=== PATIENT | male | born 1980 | race Caucasian/White ===

== ENCOUNTER → 2016-07-13 10:01 | Outpatient (CLI) | payer MEDICAID ==
[2016-02-04 16:14] VITALS: BMI 24.4
[~2016-07-13 10:01] MED LIST: HYDROCODON-ACE1 EAC7 PO; KLONOPIN1 MG PO; METOPROLOL TART50 MG PO; NICODERM C1 PATCH .2 TRANSDERM; PROTONIX40 MG PO; XARELTO15 MG PO
[2016-07-13 12:03] LABS: ALBUMIN 3.7 g/dL (3.4-5.0); BILIRUBIN - DIRECT 0.14 mg/dL (0.00-0.30); BILIRUBIN - INDIRECT 0.36 mg/dL (0.00-1.00); BILIRUBIN - TOTAL 0.5 mg/dL (0.2-1.3); PROTEIN - SERUM 6.7 g/dL (6.4-8.2); THYROID STIMULATING HORMONE 1.9 uIU/mL (0.36-3.74)
== END | disposition home or self-care (01) ==
LOC: D.LAB 07-11 10:00 → D.RT 07-11 10:00
PROVIDERS: Internal Medicine Pulmonary Disease
DX: I27.2 Other secondary pulmonary hypertension (principal)

== ENCOUNTER 2016-09-17 18:45 | Inpatient (IN) | payer MEDICAID ==
[~2016-09-17] VITALS: Ht 182.9 cm; Wt 79.7 kg
--- NOTE | ~2016-09-17 | HEMODYNAMI ---
PATIENT:TOBY MELENDEZ MEDICAL RECORD: [id number] : 84 [facility] [id number] ADMISSION DATE: 09/17/16 Generatedon:09/20/201616:28 Patient name: TOBY MELENDEZ Patient #: [id number] SSN: : 1980 Date of study: 09/20/2016 Page: Of Hemodynamic Procedure Report Patient Data Patient Demographics Procedure consent was obtained First Name: TOBY Gender: Male Last Name: NORA : 1980 [facility] Initial: KEYSHAWN Age: 36 year(s) Patient #: [id number] Race: Unknown Additional ID: [id number] Contact details Address: [address] [place] [address] State: [place] City: [place] Zip code: [address] Past Medical History Allergies: No known allergies Admission Admission Data Admission Date: 09/17/2016 Admission Time: 22:12 Room #: 2124 Procedure Procedure Types Cath Procedure Diagnostic Procedure Right Heart Right Heart Cath Right Heart Pharmacology Study Procedure Description Procedure Date Procedure Date: 09/20/2016 Procedure Start Time: 15:45 Procedure End Time: 16:27 Procedure Staff Name Function Karson Lyons MD Performing Physician Nahum Leal RT Scrub Amaris Chiu RN Nurse Kimberly Josue RT Monitor Morris Rebollar RT Foundation Relations Director Procedure Data Cath Procedure Fluoroscopy Diagnostic fluoroscopy Total fluoroscopy Time: time: 17.9 min 17.9 min Diagnostic fluoroscopy Total fluoroscopy dose: dose: 293.31 mGy 293.31 mGy Entry Location Entry Primary Successful Side Size Upsize Upsize Entry Closure Gaytan ccessful Closure Location (Fr) 1 (Fr) 2 (Fr) Remarks Device Remarks Femoral Right 7 Fr Manual vein Short Compression Estimated blood loss: 5 ml Diagnostic catheters Device Type Used For End Catheter Placement PostRank 7Fr Right heart cath [place] Thermodilution esmer Diagnostic Infinity 5Fr Right heart cath MPA-2 catheter Diagnostic Infinity 5Fr Right heart cath AR MOD Catheter Procedure Complications No complications Procedure Medications Medication Administration Route Dosage Oxygen NC 2 l/min Lidocaine 2% added to field 20 Heparin Flush Bag added to field 2 bags (1000units/500ml NS) 0.9% NaCl I.V. 100 ml/hr Versed I.V. 2 mg Fentanyl I.V. 50 mcg Versed I.V. 1 mg Fentanyl I.V. 50 mcg Versed I.V. 1 mg Fentanyl I.V. 50 mcg Versed I.V. 1 mg Fentanyl I.V. 50 mcg Adenosine IV 3mg/ml I.V. 50 mcg/kg/min Adenosine IV 3mg/ml I.V. 100 mcg/kg/min Adenosine IV 3mg/ml I.V. 200 mcg/kg/min Adenosine IV 3mg/ml I.V. 200 Versed I.V. 1 mg Hemodynamics Rest Heart Rate: 83 (bpm) Pressure Samples Time Site Value (mmHg) Purpose Heart Use Rate(bpm) 16:10 RV 101/-1,18 Snapshot 81 16:15 RV 105/-2,18 Snapshot 80 16:17 RV 94/-6,11 Snapshot 75 16:18 RV 79/-6,22 Snapshot 96 Snapshots Pre Cath Intra NCS Post Cath Vital Signs Time Heart Resp SPO2 NIBP (mmHg) Rhythm Pain Sedation Rate (ipm) (%) Status Level (bpm) 15:37:19 81 16 100 126/89(112) NSR 0 (11) 10(A) , No pain 15:41:36 92 15 100 131/85(112) NSR 0 (11) 10(A) , No pain 15:45:55 84 17 100 131/89(108) NSR 0 (11) 10(A) , No pain 15:50:13 72 15 99 134/90(107) NSR 0 (11) 10(A) , No pain 15:54:29 72 16 97 132/105(123) NSR 0 (11) 10(A) , No pain 15:58:47 77 17 98 132/87(109) NSR 0 (11) 10(A) , No pain 16:03:05 72 15 98 130/80(107) NSR 0 (11) 10(A) , No pain 16:07:21 83 16 94 114/87(99) NSR 0 (11) 10(A) , No pain 16:11:31 74 20 100 118/91(111) NSR 0 (11) 10(A) , No pain 16:15:47 72 17 100 130/83(99) NSR 0 (11) 10(A) , No pain 16:20:09 97 19 100 114/68(93) NSR 0 (11) 10(A) , No pain 16:24:23 78 16 100 115/82(106) NSR 0 (11) 10(A) , No pain Medications Time Medication Route Dose Verified Delivered Reason Notes Effectiveness by by 15:37:41 Oxygen NC 2 l/min Karson Buffie 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 anesthetic field MD DUMONT 15:47:54 Heparin Flush added 2 bags Karson Karson used for Bag to [facility] procedure (1000units/500ml field MD DUMONT NS) 15:48:06 0.9% NaCl I.V. 100 ml/hr Karson Buffie Per [place] Chiu RN physician 15:48:27 Versed I.V. 2 mg Karson Buffie for [facility] RN sedation 15:48:32 Fentanyl I.V. 50 mcg [facility] 15:53:34 Versed I.V. 1 mg [facility] 15:53:39 Fentanyl I.V. 50 mcg Karson Buffie for [place] Chiu RN sedation 16:00:57 Versed I.V. 1 mg [facility] sed[facility] 16:01:01 Fentanyl I.V. 50 mcg [facility] sedation 16:05:12 Versed I.V. 1 mg [facility] sed[facility] 16:11:13 Versed I.V. 1 mg [facility] 16:11:17 Fentanyl I.V. 50 mcg [facility]arson [facility] sed[facility] 16:13:11 Adenosine IV I.V. 50 Karson Buffie Per 3mg/ml mcg/kg/min [place] Apple RN physician 16:15:23 Adenosine IV I.V. 100 Karson Buffie Per 3mg/ml mcg/kg/min [facility] mckenzie MD 16:17:35 Adenosine IV I.V. 200 Karson Mavisie Per 3mg/ml mcg/kg/min [facility] mckenzie MD 16:19:28 Adenosine IV I.V. 200 Karson Buffie Per 3mg/ml mcg/kg/min- [facility] Chiu RN physician discontined Procedure Log Time Note 14:53:44 ACC Patient presents with Stable Angina CCS Anginal Class 2--Slight limitation of ordinary activity. 14:53:46 Diagnostic Cath status Elective 14:53:48 Nahum Elvis RT(R) sent for patient. Start room use. 14:53:49 Time tracking: Regular hours 14:53:53 Plan of Care:Hemodynamics will remain stable., Cardiac rhythm will remain stable., Comfort level will be maintained., Respiratory function will remain adequate., Patient/ family verbilizes understanding of procedure., Procedure tolerated without complication., Recovers from procedure without complications.. 15:29:29 Patient received from PCU to CCL 3 Alert and oriented. Tansferred to table in Supine position. 15:29:30 Warm blankets applied, and brandi hugger turned on for patient comfort. 15:29:31 Correct patient and procedure confirmed by team. 15:29:32 Signed procedure consent form obtained from patient. 15:29:33 ECG and BP/O2 sat monitors applied to patient. 15:29:34 Full Disclosure recording started 15:30:17 H&P Date Dictated: 09/19/2016 Within 30 days and on chart.. 15:30:19 Pre-procedure instructions explained to patient. 15:30:20 Pre-op teaching completed and patient verbalized understanding. 15:30:21 Family in patients room. 15:30:33 Patient NPO since Midnight. 15:30:42 Patient allergic to No known allergies 15:30:45 Is the patient allergic to Iodine/contrast media? No. 15:32:21 Xarelto last dose 09/17/16 15:32:26 Patient diabetic? No. 15:32:59 Previous problem with sedation/anesthesia? No ? 15:33:22 Snore? Yes 15:33:31 Rhythm: sinus rhythm 15:33:42 Sleep apnea? No 15:33:43 Deviated septum? No 15:33:44 Opens mouth fully? Yes 15:33:45 Sticks out tongue? Yes 15:33:46 Airway obstruction? No ? 15:33:48 Dentures? No ? 15:33:51 Pre procedure: right dorsailis pedis pulse 2+ Normal; easily identifiable; not easily obliterated 15:33:54 Patient pain scale 0/10 ?. 15:34:22 IV patent on arrival in right hand with 0.9% NaCl at [facility]. 15:34:29 Lab results completed and on chart. 15:34:31 Right groin area was prepped with chlora-prep and draped in sterile fashion 15:34:32 Alarms reviewed by R. N. 15:34:32 Sharps counted by scrub and verified by R.N. 15:34:39 Use device set Acist 15:34:40 Acist Syringe opened to sterile field. 15:34:41 Acist Hand Control opened to sterile field. 15:34:42 Acist Manifold opened to sterile field. 15:35:12 Bag Decanter opened to sterile field. 15:35:14 Terumo 7Fr [place] Sheath opened to sterile field. 15:35:22 Medline Cath Pack opened to sterile field. 15:35:51 Vital chart was started 15:37:26 Baseline sample Acquired. 15:37:41 Oxygen 2 l/min NC was administered by Amaris Chiu RN; used for procedure; 15:40:03 Final Timeout: patient, procedure, and site verified with staff and physician. All members of the team are in agreement. 15:40:05 Right groin site verified by team. 15:40:11 Physical assessment completed. ASA score P 2 - A patient with mild systemic disease as per Karson Lyons MD. 15:40:14 Sedation plan: IV Moderate Sedation Versed, Fentanyl 15:43:33 Zero performed for pressure channel P1 15:45:13 Procedure started. 15:45:23 Local anesthetic to right femoral vein with Lidocaine 2% by Karson Lyons MD.INITIAL ACCESS ONLY 15:46:34 A 7 Fr Short sheath was inserted into the Right Femoral vein 15:46:52 A PostRank 7Fr [place] Thermodilution esmer was advanced over the wire and used for Right heart cath. 15:47:48 Lidocaine 2% 20ml vial added to field was administered by Karson Lyons MD; for local anesthetic; 15:47:54 Heparin Flush Bag (1000units/500ml NS) 2 bags added to field was administered by Karson Lyons MD; used for procedure; 15:48:06 0.9% NaCl 100 ml/hr I.V. was administered by Amaris Chiu RN; Per physician; 15:48:27 Versed 2 mg I.V. was administered by Amaris Chiu RN; for sedation; 15:48:32 Fentanyl 50 mcg I.V. was administered by Amaris Chiu RN; for sedation; 15:50:35 [facility] [place] 150cm J .025 wire opened to sterile field. 15:50:52 0.025 wire advanced. 15:53:34 Versed 1 mg I.V. was administered by Amaris Chiu RN; for sedation; 15:53:39 Fentanyl 50 mcg I.V. was administered by Amaris Chiu RN; for sedation; 16:00:01 [place] removed unable to cross valve. 16:00:07 A Diagnostic Infinity 5Fr MPA-2 catheter was advanced over the wire and used for Right heart cath. 16:00:15 [facility] [place] 260cm J .035 wire opened to sterile field. 16:00:57 Versed 1 mg I.V. was administered by Amaris Chiu RN; for sedation; 16:01:01 Fentanyl 50 mcg I.V. was administered by Amaris Chiu RN; for sedation; 16:03:16 MPA-2 removed, unable to cross valve. 16:03:28 A Diagnostic Infinity 5Fr AR MOD Catheter was advanced over the wire and used for Right heart cath. 16:05:12 Versed 1 mg I.V. was administered by Amaris Chiu RN; for sedation; 16:05:24 [facility] 260 .035 glide wire opened to sterile field. 16:10:36 Baseline RV Systolic Pressure 101. 16:11:13 Versed 1 mg I.V. was administered by Amaris Chiu RN; for sedation; 16:11:17 Fentanyl 50 mcg I.V. was administered by Amaris Chiu RN; for sedation; 16:11:47 Unable to advance catheter to PA. Pressures taken in RV. 16:13:11 Adenosine IV 3mg/ml 50 mcg/kg/min I.V. was administered by Buffie Chiu RN; Per physician; 16:15:02 Timer 1 started at 4:12 PM, stopped at 4:15 PM, duration 00:02:03 sec. 16:15:03 2 min post 50mcg adenosine RV systolic pressure 105. 16:15:23 Adenosine IV 3mg/ml 100 mcg/kg/min I.V. was administered by Amaris Chiu RN; Per physician; 16:17:14 Timer 1 started at 4:15 PM, stopped at 4:17 PM, duration 00:02:05 sec. 16:17:15 2 minutes post 100 mcg adenosine RV systolic pressure 94. 16:17:35 Adenosine IV 3mg/ml 200 mcg/kg/min I.V. was administered by Amaris Chiu RN; Per physician; 16:19:09 Timer 1 started at 4:17 PM, stopped at 4:19 PM, duration 00:01:48 sec. 16:19:28 Adenosine IV 3mg/ml 200 mcg/kg/min- discontined I.V. was administered by Amaris Chiu RN; Per physician; 16:19:42 2 minute post 200 mcg adenosine RV systolic Pressure 79. 16:20:13 Catheter removed. 16:20:22 Sheath removed intact; hemostasis achieved with Manual Compression to the Right Femoral vein. 16:20:24 Procedure ended.(Physican Out) 16:20:39 Fluoroscopy time 17.90 minutes. 16:20:46 Flurop Dose total: 293.31 16:20:46 Fluoroscopy dose: 293.31 mGy 16:20:51 Sharps counted by scrub and verified by R.N. 16:20:52 Insertion/operative site no bleeding no hematoma. 16:20:56 Post-op/insertion site Right Femoral vein dressed using a 4 x 4 and Tegaderm. 16:21:00 Post right femoral vein:stable, clean and dry 16:21:02 Post Procedure Pulses reassessed and unchanged 16:21:04 Post-procedure physical assessment completed. ASA score P 2 - A patient with mild systemic disease as per Karson Lyons MD. 16:21:06 Post procedure rhythm: unchanged. 16:21:09 Estimated blood loss: 5 ml 16:21:10 Post procedure instruction explained to patient.Patient verbalizes understanding. 16:21:10 Patient needs reinforcement of post procedure teaching. 16:21:18 Procedure type changed to Cath procedure, Diagnostic procedure, Right Heart, Right Heart Cath, Right Heart Pharmacology Study 16:21:24 Procedure Complication : No complications 16:21:26 See physician's report for complete and final results. 16:21:39 Tegaderm 4 x 4 opened to sterile field. 16:22:37 Procedure and supply charges have been captured, reviewed, submitted and are correct. 16:27:33 Vital chart was stopped 16:27:40 Report given to PCU. 16:27:44 Patient transfered to PCU with Bed. 16:27:53 Procedure ended. 16:27:53 Full Disclosure recording stopped 16:27:57 End room use (Document Last) Device Usage Item Name Manufacture Quantity Catalog Hospital Part Current Minima l Lot# / Number Charge Number Stock Stock Serial# Code Acist Syringe Acist 1 09095 603187 561776 256973 20 Medical Systems Inc Acist Hand Acist 1 14313 238236 253285 592853 5 Control Medical Systems AnyPerk Acist Manifold Acist 1 93996 468561 897070 319760 5 Medical Systems Inc Bag Decanter Microtek 1 2002S 052970 41223 097153 5 Medical Inc. Terumo 7Fr Terumo 1 [id number] 949630 942719 376741 5 [place] Sheath Medline Cath Cardinal 1 [id number] 189428 63283 706278 5 [facility] Cantu Cantu 1 [id number] 208569 64654 514982 3 Lifesciences Lifesciences 7Fr [place] Thermodilution esmer [facility] [place] [address] [facility] [place] 1 393064 671502 142294 821510 2 J .025 wire Diagnostic Cardinal 1 [id number] 706808 469307 100225 5 Infinity 5Fr Health MPA-[address] [place] [address] [facility] [place] 1 382432 049245 543628 901278 30 J .035 wire Diagnostic Cardinal 1 [id number] 431047 256767 609427 15 Infinity 5Fr Health AR MOD Catheter [facility] 1 [id number] 837480 440210 5 RO[place] 260 .035 glide wire Tegaderm 4 x 4 3M 1 1626W 551156 782059 783775 5 Signature Audit [place] Stage Time Signature Unsigned Intra-Procedure 09/20/2016 Kimberly 4:28:15 PM Counts RT(R) Signatures Monitor : Kimberly Signature : Counts RT Date : Time : [facility] [address] [facility] [place] [address]
[2016-09-17 19:18] LABS: BASOPHILS 0.2 % (0-2); EOSINOPHILS 1.5 % (0-7); HEMATOCRIT 45.7 % (42.0-54.0); HEMOGLOBIN 15.7 g/dL (13.5-17.5); IMMATURE GRANULOCYTES 0.2 % (0-5); LYMPHOCYTES 13.5 % (15-50); MCH 31.6 pg (26.0-34.0); MCHC 34.4 g/dL (31.0-37.0); MONOCYTES 8.8 % (2-11); NEUTROPHILS 75.8 % (40-80); PLATELET COUNT 181 10x3/uL (130-400); RBC 4.97 10x6/uL (4.20-6.10); RDW 12.5 % (11.5-14.5); WBC 9.5 10x3/uL (4.8-10.8)
[2016-09-17 19:35] LABS: ALBUMIN 3.9 g/dL (3.4-5.0); ALKALINE PHOSPHATASE 65 U/L (46-116); ALT (SGPT) 42 U/L (10-68); CALC OSMOLALITY 282 mosm/kg (275-300); CALCIUM 8.9 mg/dL (8.5-10.1); CARBON DIOXIDE 25.4 mmol/L (21.0-32.0); CHLORIDE - SERUM 105 mmol/L (98-107); GLUCOSE 125 mg/dL (74-106); POTASSIUM - SERUM 3.8 mmol/L (3.5-5.1); PROTEIN - SERUM 7.2 g/dL (6.4-8.2); SODIUM 141 mmol/L (136-145); UREA NITROGEN 16 mg/dL (7-18); eGFR NON AFRICAN AMERICAN > 90 mL/min (90-120)
[2016-09-17 19:44] LABS: CHOL - HDL RATIO 2.9 ratio (2.3-4.9); CHOLESTEROL, TOTAL 132 mg/dL (0-200); CREATINE KINASE 53 UL (21-232); HDL CHOLESTEROL 45 mg/dL (32-96); LDL CHOLESTEROL 79 mg/dL (0-100); LDL-HDL RATIO 1.8 ratio (1.5-3.5); TRIGLYCERIDE 42 mg/dL (30-200); TROPONIN-I < 0.017 ng/mL (0.000-0.060)
[2016-09-17 20:05] LABS: APTT 43.8 SECONDS (22.8-39.4); INR 1.53 (0.85-1.17); PROTIME 18.3 SECONDS (11.6-15.0)
[2016-09-17 20:36] LABS: CKMB 0.7 U/L (0.0-3.6)
[2016-09-17] MEDS ORDERED: XARELTO20 MG PO (23:14)
[2016-09-17 23:59] VITALS: BP 105/75; BMI 24.4
[2016-09-18 01:53] VITALS: BP 150/75
--- NOTE | 2016-09-18 04:59 | NUR ---
PT HAS RESTED SINCE ARRIVAL TO ROOM. ROUSES UP EASILY. VOICING NO NEEDS. SR PER TELEMETRY. MONITOR AND CPOC.
[2016-09-18 05:56] VITALS: BP 100/63
--- NOTE | 2016-09-18 07:00 | NUR ---
ASSESSMENT COMPLETED. DENIES ANY NEEDS. TELEMERTY SHOWS SR AT 75. RIGHT HAND IV WITH NS AT 75. UP AB ERIK. CALL LIGHT IN REACH WITH SR UP
--- NOTE | 2016-09-18 07:56 | NUR ---
RESTING QUIETLY RESP UNLABORED NAD NOTED
[2016-09-18 08:00] VITALS: BP 104/60
[2016-09-18 11:55] VITALS: BP 101/64
[2016-09-18 12:22] VITALS: Ht 182.9 cm; Wt 79.7 kg
[2016-09-18 13:51] LABS: CKMB 0.4 U/L (0.0-3.6); CREATINE KINASE 48 UL (21-232)
[2016-09-18 13:52] LABS: TROPONIN-I < 0.017 ng/mL (0.000-0.060)
[2016-09-18 15:36] VITALS: BP 109/71
--- NOTE | 2016-09-18 16:30 | NUR ---
LYING QUIETLY. C/O ANXIETY.KLOPIN GIVEN FOR RELIEF. WILL MONITOR
--- NOTE | 2016-09-18 19:04 | NUR ---
DENIES ANY NEEDS. CALL LIGHT IN REACH WITH SR UP. TELEMERTY SHOWS SR
[2016-09-18 19:37] LABS: CKMB 0.6 U/L (0.0-3.6); CREATINE KINASE 51 UL (21-232)
[2016-09-18 19:38] LABS: TROPONIN-I < 0.017 ng/mL (0.000-0.060)
[2016-09-18 20:01] VITALS: BP 109/68
[2016-09-19 00:17] VITALS: BP 122/73
[2016-09-19 01:39] LABS: CKMB 0.4 U/L (0.0-3.6); CREATINE KINASE 46 UL (21-232); TROPONIN-I < 0.017 ng/mL (0.000-0.060)
[2016-09-19 04:46] VITALS: BP 101/68
[2016-09-19 06:50] LABS: BASOPHILS 0.3 % (0-2); EOSINOPHILS 2.5 % (0-7); HEMATOCRIT 48.5 % (42.0-54.0); HEMOGLOBIN 16.6 g/dL (13.5-17.5); IMMATURE GRANULOCYTES 0.1 % (0-5); LYMPHOCYTES 23.4 % (15-50); MCH 31.3 pg (26.0-34.0); MCHC 34.2 g/dL (31.0-37.0); MCV 91.5 fL (80.0-100.0); MEAN PLATELET VOLUME 12.2 fL (7.4-10.4); MONOCYTES 8.8 % (2-11); NEUTROPHILS 64.9 % (40-80); PLATELET COUNT 192 10x3/uL (130-400); RDW 12.5 % (11.5-14.5); WBC 8.8 10x3/uL (4.8-10.8)
[2016-09-19 07:12] LABS: ALBUMIN 3.8 g/dL (3.4-5.0); ALKALINE PHOSPHATASE 69 U/L (46-116); CALCIUM 8.9 mg/dL (8.5-10.1); CHLORIDE - SERUM 103 mmol/L (98-107); GLUCOSE 92 mg/dL (74-106); POTASSIUM - SERUM 3.9 mmol/L (3.5-5.1); PROTEIN - SERUM 7.2 g/dL (6.4-8.2); SODIUM 139 mmol/L (136-145); eGFR NON AFRICAN AMERICAN > 90 mL/min (90-120)
[2016-09-19 07:14] LABS: ALT (SGPT) 53 U/L (10-68); CALC OSMOLALITY 281 mosm/kg (275-300); UREA NITROGEN 23 mg/dL (7-18)
[2016-09-19 08:19] VITALS: BP 98/67
[2016-09-19 12:05] VITALS: BP 100/64
[2016-09-19 15:13] VITALS: BP 123/83
--- NOTE | 2016-09-19 18:36 | NUR ---
ALERT AND ORIENTED X4. RESTING IN BED. AGREES TO GO TO RAILWAY YARD ASSISTANT. NO ORDERS IN AT THIS TIME. SINUS RHYTHM 69bpm ON TELEMETRY. DENIES ANY NEEDS. CONTINUE PLAN OF CARE AND SAFETY PRECAUTIONS.
--- NOTE | 2016-09-19 19:15 | NUR ---
ASSESSMENT PER FLOWSHEET. VOICES NO CO AT TIME.
[2016-09-19 20:00] VITALS: BP 109/73
--- NOTE | 2016-09-19 20:30 | NUR ---
CONSENT SIGNED FOR HEART CATH.
--- NOTE | 2016-09-20 | NUR ---
SLEEPING NO DISTRESS NOTED. SR UP X 2.
--- NOTE | 2016-09-20 03:31 | NUR ---
SLEEPING NO DISTRESS NOTED. SR UP X 2. CALL LIGHT WITHIN REACH.
[2016-09-20 04:20] VITALS: BP 98/63
[2016-09-20 06:03] LABS: BASOPHILS 0.1 % (0-2); EOSINOPHILS 2.4 % (0-7); HEMATOCRIT 46.5 % (42.0-54.0); HEMOGLOBIN 15.7 g/dL (13.5-17.5); IMMATURE GRANULOCYTES 0.1 % (0-5); LYMPHOCYTES 25.6 % (15-50); MCH 30.8 pg (26.0-34.0); MCHC 33.8 g/dL (31.0-37.0); MCV 91.4 fL (80.0-100.0); MEAN PLATELET VOLUME 12.2 fL (7.4-10.4); MONOCYTES 8.1 % (2-11); NEUTROPHILS 63.7 % (40-80); PLATELET COUNT 179 10x3/uL (130-400); RBC 5.09 10x6/uL (4.20-6.10); RDW 12.3 % (11.5-14.5); WBC 7.9 10x3/uL (4.8-10.8)
[2016-09-20 06:30] LABS: ALBUMIN 3.5 g/dL (3.4-5.0); ALKALINE PHOSPHATASE 69 U/L (46-116); ALT (SGPT) 53 U/L (10-68); BILIRUBIN - TOTAL 0.79 mg/dL (0.2-1.3); CALC OSMOLALITY 287 mosm/kg (275-300); CALCIUM 8.3 mg/dL (8.5-10.1); CARBON DIOXIDE 24.6 mmol/L (21.0-32.0); CHLORIDE - SERUM 108 mmol/L (98-107); CREATININE - SERUM 0.9 mg/dL (0.6-1.3); GLUCOSE 95 mg/dL (74-106); POTASSIUM - SERUM 4.3 mmol/L (3.5-5.1); PROTEIN - SERUM 6.5 g/dL (6.4-8.2); SODIUM 142 mmol/L (136-145); UREA NITROGEN 26 mg/dL (7-18); eGFR NON AFRICAN AMERICAN > 90 mL/min (90-120)
--- NOTE | 2016-09-20 07:45 | NUR ---
ASSESSMENT DONE. DENIES NEEDS.
[2016-09-20 08:17] VITALS: BP 99/69
--- NOTE | 2016-09-20 08:41 | NUR ---
UP ADLIB IN ROOM. ISABELLA NEEDS.
--- NOTE | 2016-09-20 09:56 | CN ---
PATIENT NAME:GUANAKO MELENDEZ MEDICAL RECORD: [id number] : 84 LOCATION:D. D.2124 ADMIT DATE: 09/17/16 ACCOUNT: [id number] CONSULTING PHYSICIAN: MERLIN FLOWERS M.D. REFERRING PHYSICIAN: CHARLI DE LA TORRE MD DATE OF CONSULTATION: 09/18/2016 REFERRING PHYSICIAN: Dr. Charli De La Torre REASON FOR CONSULTATION: Diastolic dysfunction and valvular heart disease and pulmonary hypertension. HISTORY OF PRESENT ILLNESS: Guanako Giron is a 36-year-old male followed by Dr. Karson Lyons in cardiovascular clinic with known transient paroxysmal atrial fibrillation, now maintaining sinus rhythm, pulmonary hypertension with pulmonary artery pressure of 86 mmHg per recent echocardiogram with LV function of 40% and moderate to severe TR. He presented through the Emergency Department with chest pain and acute shortness of breath. He was admitted for above and we have been asked to make cardiovascular recommendations. It was recently discussed at patient's last office visit the need for a right heart catheterization. At that time, the patient declined. He was seen by Dr. Lyons on 07/20/2016. He does have a history of pulmonary emboli and is on Xarelto therapy and is oxygen dependent. REVIEW OF SYSTEMS: As per HPI. PAST MEDICAL HISTORY: Pulmonary hypertension, PE, anxiety, right-sided heart failure. ALLERGIES: He has no allergies. MEDICATIONS: 1. Xarelto 20 mg daily. 2. Klonopin 1 mg b.i.d. PHYSICAL EXAMINATION: VITAL SIGNS: Normal. GENERAL SURVEY: Reveals a well-developed, well-nourished male who is in no distress at the time of the exam. HEENT: Head is normocephalic. Pupils are equal and reactive to light and accommodation. Extraocular muscles are intact. Mucous membranes are pink and moist. NECK: Supple. Trachea is midline. There is no JVD or carotid bruits. CARDIOVASCULAR: Reveals a regular rate and rhythm without murmur, gallop or rub. LUNGS: Clear and equal bilaterally. ABDOMEN: Soft, nontender. Bowel sounds are positive. EXTREMITIES: No clubbing, cyanosis or edema. NEUROLOGIC: Cranial nerves II-XII are grossly intact. ASSESSMENT AND PLAN: 1. Severe pulmonary hypertension with PA pressure of 86 mmHg per recent 2D echocardiogram. Agree with need for right heart catheterization. The patient is hesitant to do this at this point. 2. Fckxj-gy-[id number] diastolic dysfunction. The patient is euvolemic by exam. CONSULT REPORT [id number] GUANAKO MELENDEZ He is responding to the IV Lasix. 3. Severe valvular heart disease with severe tricuspid regurgitation. 4. History of pulmonary emboli, on Xarelto therapy. 5. Anxiety disorder. 6. Cardiomyopathy per recent echocardiogram with LV of 40%. RECOMMENDATIONS: Agree further need for a right and left heart cath. The patient has declined this at this time. We will reassess in the a.m. TRANSINT:[id number] Voice Confirmation ID: [id number] DOCUMENT ID: [id number] Dictated By: ABI PEARSON I have interviewed/examined the above patient and agree with these documented findings. MERLIN FLOWERS M.D. at 0956 CC: [id number] DICTATION DATE: 09/18/16 0848 RAPID OUTSOLE STITCHER: 09/18/16 1023 ADM IN [facility] [address] [place] [address]
[2016-09-20 11:22] VITALS: BP 125/78
--- NOTE | 2016-09-20 16:30 | NUR ---
RETURN FROM COTTON AGENT PER BED. RHC DONE. RT MARZENA RHODES C/D/I. FAMILY AT SIDE.
--- NOTE | 2016-09-20 18:34 | NUR ---
DC GIVEN TO PT
--- NOTE | 2016-09-20 19:25 | NUR ---
PTS TRANSPORTATION HERE. BELONGINGS COLLECTED. TRANSPORTED DOWN IN W/C TO LOBBY WHERE RIDE IS. NO FURTHER NEEDS.
--- NOTE | 2016-09-23 10:26 | OP ---
PATIENT NAME: TOBY MELENDEZ MEDICAL RECORD: [id number] :84 LOCATION:D.M2 D.2124 ADMISSION DATE:09/17/16 SURGEON: ANNALISE SAMUEL MD DATE OF OPERATION: 09/20/2016 PROCEDURE: Right heart catheterization. IMPRESSION: Pulmonary hypertension. DESCRIPTION OF PROCEDURE: After right femoral vein was cannulated via Seldinger technique. We were unable to provide stability in the PA pressures using both diagnostic angiographic catheters and Steamburg-Omid catheter. Using RV systolic pressures as a surrogate for the PA pressures, IV adenosine was used in increasing increments up to 200 mcg/kg per minute. This showed excellent improvement, steady states at 200 mcg/kg per minute with RV systolic pressures decreasing from over 100 to ____. IMPRESSION: Greater than 10% improvement in RV systolic pressures with continuous IV adenosine. TRANSINT:[id number] Voice Confirmation ID: [id number] DOCUMENT ID: [id number] ANNAILSE SAMUEL MD at 1026 CC: [id number] DICTATION DATE: 09/20/16 1628 CNC MACHINIST: 09/21/16 0030 DIS IN 09/20/16 [facility] [address] [place] [id number]
== END 2016-09-20 19:26 | disposition home or self-care (01) | DRG 286 ==
LOC: D.ER 18:45 → D.M2 22:12
PROVIDERS: Emergency Medicine; Internal Medicine Interventional Cardiology; ADMIT Family Medicine
PROC: B2141ZZ Fluoroscopy of Right Heart using Low Osmolar Contrast (ICD-10-PCS; 2016-09-20)
PROC: 4A023N6 Measurement of Cardiac Sampling and Pressure, Right Heart, Percutaneous Approach (ICD-10-PCS; principal; 2016-09-20 15:00)
DX: I27.2 Other secondary pulmonary hypertension (principal); I50.33 Acute on chronic diastolic (congestive) heart failure; F17.203 Nicotine dependence unspecified, with withdrawal; I11.0 Hypertensive heart disease with heart failure; Z99.81 Dependence on supplemental oxygen; I07.1 Rheumatic tricuspid insufficiency; F41.9 Anxiety disorder, unspecified; N28.9 Disorder of kidney and ureter, unspecified; I48.0 Paroxysmal atrial fibrillation; F12.10 Cannabis abuse, uncomplicated; Z86.711 Personal history of pulmonary embolism

== ENCOUNTER 2016-10-26 19:15 | Emergency (ER) | payer MEDICAID ==
[2016-09-18 12:22] VITALS: BMI 24.4
[~2016-10-26 19:15] MED LIST changes: +XARELTO20 MG PO
[2016-10-26 20:39] LABS: BASOPHILS 0.1 % (0-2); EOSINOPHILS 0.8 % (0-7); HEMATOCRIT 42.3 % (42.0-54.0); HEMOGLOBIN 14.2 g/dL (13.5-17.5); IMMATURE GRANULOCYTES 0.2 % (0-5); LYMPHOCYTES 13.1 % (15-50); MCH 31.1 pg (26.0-34.0); MCHC 33.6 g/dL (31.0-37.0); MCV 92.8 fL (80.0-100.0); MEAN PLATELET VOLUME 11.4 fL (7.4-10.4); MONOCYTES 7.5 % (2-11); NEUTROPHILS 78.3 % (40-80); PLATELET COUNT 163 10x3/uL (130-400); RBC 4.56 10x6/uL (4.20-6.10); RDW 13.8 % (11.5-14.5)
[2016-10-26 20:52] LABS: ALBUMIN 3.4 g/dL (3.4-5.0); ALKALINE PHOSPHATASE 55 U/L (46-116); ALT (SGPT) 51 U/L (10-68); BILIRUBIN - TOTAL 0.69 mg/dL (0.2-1.3); CALC OSMOLALITY 277 mosm/kg (275-300); CALCIUM 8.5 mg/dL (8.5-10.1); CARBON DIOXIDE 26.1 mmol/L (21.0-32.0); CHLORIDE - SERUM 105 mmol/L (98-107); CREATININE - SERUM 1.1 mg/dL (0.6-1.3); GLUCOSE 91 mg/dL (74-106); POTASSIUM - SERUM 4.2 mmol/L (3.5-5.1); PROTEIN - SERUM 6.3 g/dL (6.4-8.2); SODIUM 138 mmol/L (136-145); UREA NITROGEN 19 mg/dL (7-18); eGFR NON AFRICAN AMERICAN 81 mL/min (90-120)
[2016-10-26 21:00] LABS: PRO BNP 2532 pg/mL (0-125)
[2016-10-26 21:03] LABS: APTT 51.1 SECONDS (22.8-39.4)
[2016-10-26 21:04] LABS: D-DIMER-QUANTITATIVE < 0.27 ug/mLFEU (0.20-0.54); INR 1.64 (0.85-1.17); PROTIME 19.4 SECONDS (11.6-15.0)
== END 2016-10-26 22:37 | disposition home or self-care (01) ==
LOC: D.ER 19:15
PROVIDERS: Physician Assistant Medical
DX: I50.9 Heart failure, unspecified (principal); R53.83 Other fatigue

== ENCOUNTER 2016-12-25 16:15 | Emergency (ER) | payer MEDICAID ==
[2016-09-18 12:22] VITALS: BMI 24.4
[2016-12-25 16:57] LABS: BASOPHILS 0.1 % (0-2); HEMATOCRIT 48.8 % (42.0-54.0); HEMOGLOBIN 16.7 g/dL (13.5-17.5); LYMPHOCYTES 17.2 % (15-50); MCH 31.5 pg (26.0-34.0); MCHC 34.2 g/dL (31.0-37.0); MCV 91.9 fL (80.0-100.0); MEAN PLATELET VOLUME 11.8 fL (7.4-10.4); MONOCYTES 8.6 % (2-11); NEUTROPHILS 73.1 % (40-80); PLATELET COUNT 186 10x3/uL (130-400); RBC 5.31 10x6/uL (4.20-6.10); RDW 12.9 % (11.5-14.5); WBC 8.1 10x3/uL (4.8-10.8)
[2016-12-25 17:15] LABS: ALBUMIN 4.4 g/dL (3.4-5.0); ALKALINE PHOSPHATASE 58 U/L (46-116); ALT (SGPT) 56 U/L (10-68); CALC OSMOLALITY 277 mosm/kg (275-300); CALCIUM 9.7 mg/dL (8.5-10.1); CARBON DIOXIDE 24.8 mmol/L (21.0-32.0); CHLORIDE - SERUM 105 mmol/L (98-107); GLUCOSE 101 mg/dL (74-106); POTASSIUM - SERUM 4.5 mmol/L (3.5-5.1); PROTEIN - SERUM 7.7 g/dL (6.4-8.2); SODIUM 140 mmol/L (136-145); UREA NITROGEN 10 mg/dL (7-18); eGFR NON AFRICAN AMERICAN > 90 mL/min (90-120)
[2016-12-25 17:26] LABS: CHOLESTEROL, TOTAL 151 mg/dL (0-200); CKMB 0.6 U/L (0.0-3.6); CREATINE KINASE 65 UL (21-232); HDL CHOLESTEROL 51 mg/dL (32-96); LDL CHOLESTEROL 90 mg/dL (0-100); LDL-HDL RATIO 1.8 ratio (1.5-3.5); TRIGLYCERIDE 52 mg/dL (30-200); TROPONIN-I < 0.017 ng/mL (0.000-0.060)
== END 2016-12-25 18:20 | disposition home or self-care (01) ==
LOC: D.ER 16:15
PROVIDERS: Emergency Medicine
DX: R00.2 Palpitations (principal); Z86.79 Personal history of other diseases of the circulatory system; I45.10 Unspecified right bundle-branch block

== ENCOUNTER 2017-03-18 20:38 | Emergency (ER) | payer MEDICAID ==
[2016-09-18 12:22] VITALS: BMI 24.4
[2017-03-18 21:20] LABS: BASOPHILS 0.2 % (0-2); EOSINOPHILS 1.5 % (0-7); HEMATOCRIT 47.2 % (42.0-54.0); HEMOGLOBIN 16.2 g/dL (13.5-17.5); IMMATURE GRANULOCYTES 0.1 % (0-5); LYMPHOCYTES 15.8 % (15-50); MCH 31.3 pg (26.0-34.0); MCHC 34.3 g/dL (31.0-37.0); MCV 91.1 fL (80.0-100.0); MEAN PLATELET VOLUME 11.4 fL (7.4-10.4); MONOCYTES 8.5 % (2-11); NEUTROPHILS 73.9 % (40-80); PLATELET COUNT 177 10x3/uL (130-400); RBC 5.18 10x6/uL (4.20-6.10); RDW 12.5 % (11.5-14.5); WBC 9.2 10x3/uL (4.8-10.8)
[2017-03-18 21:51] LABS: ALBUMIN 4.2 g/dL (3.4-5.0); ALKALINE PHOSPHATASE 61 U/L (46-116); ALT (SGPT) 52 U/L (10-68); CALC OSMOLALITY 277 mosm/kg (275-300); CALCIUM 9.1 mg/dL (8.5-10.1); CARBON DIOXIDE 28.9 mmol/L (21.0-32.0); CHLORIDE - SERUM 102 mmol/L (98-107); CREATININE - SERUM 1.2 mg/dL (0.6-1.3); GLUCOSE 98 mg/dL (74-106); PROTEIN - SERUM 7.4 g/dL (6.4-8.2); SODIUM 140 mmol/L (136-145); UREA NITROGEN 11 mg/dL (7-18); eGFR NON AFRICAN AMERICAN 74 mL/min (90-120)
[2017-03-18 22:05] LABS: CHOL - HDL RATIO 2.9 ratio (2.3-4.9); CHOLESTEROL, TOTAL 146 mg/dL (0-200); CREATINE KINASE 51 UL (21-232); HDL CHOLESTEROL 51 mg/dL (32-96); LDL CHOLESTEROL 80 mg/dL (0-100); LDL-HDL RATIO 1.6 ratio (1.5-3.5); TRIGLYCERIDE 79 mg/dL (30-200); TROPONIN-I < 0.017 ng/mL (0.000-0.060)
== END 2017-03-18 23:59 | disposition home or self-care (01) ==
LOC: D.ER 20:38
PROVIDERS: Family Medicine
DX: R07.89 Other chest pain (principal); I45.10 Unspecified right bundle-branch block

== ENCOUNTER 2017-05-10 18:22 | Emergency (ER) | payer MEDICAID ==
[2016-09-18 12:22] VITALS: BMI 24.4
[2017-05-10 18:53] LABS: APPEARANCE CLEAR (CLEAR); BACTERIA FEW /hpf (NONE SEEN); BILIRUBIN NEGATIVE (NEGATIVE); COLOR YELLOW (YELLOW); GLUCOSE NEGATIVE (NEGATIVE); KETONE NEGATIVE (NEGATIVE); NITRITE NEGATIVE (NEGATIVE); PROTEIN TRACE mg/dL (NEGATIVE); RED CELLS - URINE OCC /hpf (0-5); UROBILINOGEN NORMAL (NORMAL); WHITE CELLS - URINE 0-5 /hpf (0-5)
[2017-05-10 19:19] LABS: BASOPHILS 0.2 % (0-2); EOSINOPHILS 1.3 % (0-7); HEMATOCRIT 46.5 % (42.0-54.0); HEMOGLOBIN 15.9 g/dL (13.5-17.5); IMMATURE GRANULOCYTES 0.1 % (0-5); MCH 31.1 pg (26.0-34.0); MCHC 34.2 g/dL (31.0-37.0); MEAN PLATELET VOLUME 11.6 fL (7.4-10.4); MONOCYTES 6.8 % (2-11); NEUTROPHILS 74.6 % (40-80); PLATELET COUNT 170 10x3/uL (130-400); RBC 5.11 10x6/uL (4.20-6.10); RDW 12.7 % (11.5-14.5); WBC 10.1 10x3/uL (4.8-10.8)
[2017-05-10 19:22] LABS: INR 1.22 (0.85-1.17); PROTIME 14.9 SECONDS (11.6-15.0)
[2017-05-10 19:23] LABS: APTT 31.5 SECONDS (22.8-39.4)
[2017-05-10 19:24] LABS: ALBUMIN 4.1 g/dL (3.4-5.0); ALKALINE PHOSPHATASE 65 U/L (46-116); ALT (SGPT) 65 U/L (10-68); BILIRUBIN - TOTAL 0.98 mg/dL (0.2-1.3); CALC OSMOLALITY 277 mosm/kg (275-300); CALCIUM 8.8 mg/dL (8.5-10.1); CARBON DIOXIDE 26.8 mmol/L (21.0-32.0); CHLORIDE - SERUM 104 mmol/L (98-107); D-DIMER-QUANTITATIVE < 0.27 ug/mLFEU (0.20-0.54); GLUCOSE 91 mg/dL (74-106); PROTEIN - SERUM 7.7 g/dL (6.4-8.2); SODIUM 138 mmol/L (136-145); UREA NITROGEN 18 mg/dL (7-18); eGFR NON AFRICAN AMERICAN > 90 mL/min (90-120)
[2017-05-10 19:36] LABS: CKMB 0.8 U/L (0.0-3.6); CREATINE KINASE 34 UL (21-232); PRO BNP 2229 pg/mL (0-125)
[2017-05-10 19:38] LABS: TROPONIN-I < 0.017 ng/mL (0.000-0.060)
[2017-05-10 19:52] LABS: UDS - AMPHET NEGATIVE QUAL (NEGATIVE); UDS - BARB NEGATIVE QUAL (NEGATIVE); UDS - BENZO NEGATIVE QUAL (NEGATIVE); UDS - COCAINE NEGATIVE QUAL (NEGATIVE); UDS - OPIATE NEGATIVE QUAL (NEGATIVE); UDS - PCP NEGATIVE QUAL (NEGATIVE); UDS - THC NEGATIVE QUAL (NEGATIVE)
== END 2017-05-10 21:50 | disposition home or self-care (01) ==
LOC: D.ER 18:22
PROVIDERS: Family Medicine; Nurse Practitioner Family
DX: R00.2 Palpitations (principal); I50.9 Heart failure, unspecified; I10 Essential (primary) hypertension

== ENCOUNTER 2017-06-05 17:44 | Emergency (ER) | payer MEDICAID ==
[2016-09-18 12:22] VITALS: BMI 24.4
[2017-06-05 20:55] LABS: BASOPHILS 0.2 % (0-2); EOSINOPHILS 1.2 % (0-7); HEMATOCRIT 45.9 % (42.0-54.0); HEMOGLOBIN 15.7 g/dL (13.5-17.5); IMMATURE GRANULOCYTES 0.1 % (0-5); LYMPHOCYTES 12.1 % (15-50); MCH 31.5 pg (26.0-34.0); MCHC 34.2 g/dL (31.0-37.0); MEAN PLATELET VOLUME 11.4 fL (7.4-10.4); MONOCYTES 6.3 % (2-11); NEUTROPHILS 80.1 % (40-80); PLATELET COUNT 167 10x3/uL (130-400); RBC 4.99 10x6/uL (4.20-6.10); WBC 11.2 10x3/uL (4.8-10.8)
[2017-06-05 21:08] LABS: ALBUMIN 3.9 g/dL (3.4-5.0); ALKALINE PHOSPHATASE 63 U/L (46-116); ALT (SGPT) 60 U/L (10-68); BILIRUBIN - TOTAL 0.91 mg/dL (0.2-1.3); CALC OSMOLALITY 283 mosm/kg (275-300); CALCIUM 8.7 mg/dL (8.5-10.1); CARBON DIOXIDE 27.6 mmol/L (21.0-32.0); CHLORIDE - SERUM 104 mmol/L (98-107); CREATININE - SERUM 1.2 mg/dL (0.6-1.3); GLUCOSE 90 mg/dL (74-106); POTASSIUM - SERUM 3.7 mmol/L (3.5-5.1); PROTEIN - SERUM 7.3 g/dL (6.4-8.2); SODIUM 141 mmol/L (136-145); UREA NITROGEN 20 mg/dL (7-18); eGFR NON AFRICAN AMERICAN 74 mL/min (90-120)
[2017-06-05 21:16] LABS: PRO BNP 2406 pg/mL (0-125)
[2017-06-05 21:18] LABS: TROPONIN-I < 0.017 ng/mL (0.000-0.060)
== END 2017-06-05 21:26 | disposition home or self-care (01) ==
LOC: D.ER 17:44
PROVIDERS: Emergency Medicine
DX: R00.0 Tachycardia, unspecified (principal); I50.9 Heart failure, unspecified; I10 Essential (primary) hypertension; I45.10 Unspecified right bundle-branch block

== ENCOUNTER 2017-07-23 23:00 | Emergency (ER) | payer SELFPAY ==
[2016-09-18 12:22] VITALS: BMI 24.4
[2017-07-23 23:54] LABS: HEMATOCRIT 46.2 % (42.0-54.0); HEMOGLOBIN 15.8 g/dL (13.5-17.5); LYMPHOCYTES 19.7 % (15-50); MCH 30.6 pg (26.0-34.0); MCHC 34.2 g/dL (31.0-37.0); MCV 89.5 fL (80.0-100.0); MEAN PLATELET VOLUME 11.3 fL (7.4-10.4); NEUTROPHILS 72.6 % (40-80); PLATELET COUNT 176 10x3/uL (130-400); RBC 5.16 10x6/uL (4.20-6.10); RDW 13.2 % (11.5-14.5); WBC 7.6 10x3/uL (4.8-10.8)
[2017-07-24 00:14] LABS: ALBUMIN 4.1 g/dL (3.4-5.0); ALKALINE PHOSPHATASE 66 U/L (46-116); ALT (SGPT) 49 U/L (10-68); CALC OSMOLALITY 280 mosm/kg (275-300); CALCIUM 8.9 mg/dL (8.5-10.1); CARBON DIOXIDE 31.7 mmol/L (21.0-32.0); CHLORIDE - SERUM 101 mmol/L (98-107); CREATININE - SERUM 1.2 mg/dL (0.6-1.3); GLUCOSE 101 mg/dL (74-106); POTASSIUM - SERUM 3.5 mmol/L (3.5-5.1); PROTEIN - SERUM 7.8 g/dL (6.4-8.2); SODIUM 140 mmol/L (136-145); UREA NITROGEN 19 mg/dL (7-18); eGFR NON AFRICAN AMERICAN 73 mL/min (90-120)
[2017-07-24 00:20] LABS: CKMB 0.5 U/L (0.0-3.6); CREATINE KINASE 39 UL (21-232)
[2017-07-24 00:22] LABS: TROPONIN-I < 0.017 ng/mL (0.000-0.060)
== END 2017-07-24 00:57 | disposition home or self-care (01) ==
LOC: D.ER 23:00
PROVIDERS: Physician Assistant Medical
DX: I50.9 Heart failure, unspecified (principal); I27.20 Pulmonary hypertension, unspecified; I45.10 Unspecified right bundle-branch block; F17.200 Nicotine dependence, unspecified, uncomplicated

== ENCOUNTER 2017-10-21 21:57 | Emergency (ER) | payer MEDICAID ==
[~2017-10-21] VITALS: Ht 182.9 cm; Wt 81.6 kg
[2017-10-21 22:02] VITALS: Ht 182.9 cm; Wt 81.6 kg
[2017-10-21] MEDS ORDERED: ADCIRCA20 MG PO (22:04)
[2017-10-21] MEDS ORDERED: LASIX40 MG PO (22:06)
[2017-10-21] MEDS ORDERED: K-TAB10 MEQ PO (22:07)
[2017-10-21 22:43] LABS: BASOPHILS 0.2 % (0-2); EOSINOPHILS 1.6 % (0-7); HEMATOCRIT 43.8 % (42.0-54.0); HEMOGLOBIN 15.1 g/dL (13.5-17.5); IMMATURE GRANULOCYTES 0.1 % (0-5); LYMPHOCYTES 17.2 % (15-50); MCH 31.1 pg (26.0-34.0); MCHC 34.5 g/dL (31.0-37.0); MCV 90.1 fL (80.0-100.0); MEAN PLATELET VOLUME 11.7 fL (7.4-10.4); MONOCYTES 7.3 % (2-11); NEUTROPHILS 73.6 % (40-80); PLATELET COUNT 183 10x3/uL (130-400); RBC 4.86 10x6/uL (4.20-6.10); RDW 12.8 % (11.5-14.5); WBC 8.8 10x3/uL (4.8-10.8)
[2017-10-21 22:57] LABS: ALBUMIN 3.8 g/dL (3.4-5.0); ALKALINE PHOSPHATASE 72 U/L (46-116); ALT (SGPT) 43 U/L (10-68); BILIRUBIN - TOTAL 0.97 mg/dL (0.2-1.3); CALC OSMOLALITY 277 mosm/kg (275-300); CALCIUM 8.5 mg/dL (8.5-10.1); CARBON DIOXIDE 32.3 mmol/L (21.0-32.0); CHLORIDE - SERUM 102 mmol/L (98-107); CREATININE - SERUM 1.3 mg/dL (0.6-1.3); GLUCOSE 92 mg/dL (74-106); POTASSIUM - SERUM 3.5 mmol/L (3.5-5.1); PROTEIN - SERUM 7.5 g/dL (6.4-8.2); SODIUM 138 mmol/L (136-145); UREA NITROGEN 18 mg/dL (7-18); eGFR NON AFRICAN AMERICAN 67 mL/min (90-120)
[2017-10-21 23:14] LABS: CKMB 0.6 U/L (0.0-3.6); CREATINE KINASE 42 UL (21-232); PRO BNP 1442 pg/mL (0-125); TROPONIN-I < 0.017 ng/mL (0.000-0.060)
[2017-10-21 23:22] LABS: UDS - AMPHET NEGATIVE QUAL (NEGATIVE); UDS - BARB NEGATIVE QUAL (NEGATIVE); UDS - BENZO NEGATIVE QUAL (NEGATIVE); UDS - COCAINE NEGATIVE QUAL (NEGATIVE); UDS - OPIATE NEGATIVE QUAL (NEGATIVE); UDS - PCP NEGATIVE QUAL (NEGATIVE); UDS - THC NEGATIVE QUAL (NEGATIVE)
[2017-10-21 23:31] LABS: APPEARANCE CLEAR (CLEAR); BILIRUBIN NEGATIVE (NEGATIVE); COLOR YELLOW (YELLOW); GLUCOSE NEGATIVE (NEGATIVE); KETONE NEGATIVE (NEGATIVE); NITRITE NEGATIVE (NEGATIVE); PROTEIN NEGATIVE (NEGATIVE); SPECIFIC GRAVITY 1.015 (1.005-1.020); UROBILINOGEN NORMAL (NORMAL)
[2017-10-21 23:32] LABS: BACTERIA FEW /hpf (NONE SEEN); EPITHELIAL CELLS 0-5 /hpf (0-5); RED CELLS - URINE 0-5 /hpf (0-5); WHITE CELLS - URINE 0-5 /hpf (0-5)
[2017-10-21 23:34] LABS: INR 2.49 (0.85-1.17); PROTIME 26.3 SECONDS (11.6-15.0)
[2017-10-21 23:35] LABS: APTT 45.5 SECONDS (22.8-39.4)
[2017-10-22] MEDS ORDERED: KLOR-CON20 MEQ/PKT PO (00:28)
[2017-10-22 01:02] VITALS: BP 126/74
== END 2017-10-22 01:09 | disposition home or self-care (01) ==
LOC: D.ER 21:57
PROVIDERS: Family Medicine
DX: I27.20 Pulmonary hypertension, unspecified (principal); I50.9 Heart failure, unspecified; R00.2 Palpitations

== ENCOUNTER 2018-01-16 20:15 | Inpatient (IN) | payer MEDICAID ==
[~2018-01-16] VITALS: Ht 182.9 cm; Wt 81.7 kg
--- NOTE | ~2018-01-16 | MORECARE ---
CASE MANAGEMENT DISCHARGE SUMMARY PATIENT: TOBY MELENDEZ UNIT: [id number] ADM DATE: 01/17/18 AGE: 37 : [birth year] SEX: M ROOM/BED: D.2119 AUTHOR: ANTONIETTA BLOUNT PHYSICIAN: REFERRING PHYSICIAN: ADALBERTO PATEL MD DATE OF SERVICE: 01/17/18 Discharge Plan Patient Name: TOBY MELENDEZ Facility: [facility]:[place] : 1980 Planned Disposition: Left Against Medical Advice Anticipated Discharge Date: 01/17/18 Discharge Date: 01/17/2018 Expected LOS: 1 Initial Reviewer: [email or web address] Initial Review Date: 01/17/2018 Generated: 01/17/18 5:42 pm Patient Name: TOBY MELENDEZ Page 16321 at 1643 All edits/amendments must be made on the electronic document DICTATION DATE: 01/17/181641 DRAPERY MAKER: TEODORO 01/17/181641 RPT#: [id number] DC DATE:01/17/18 STATUS: DIS IN [facility] [address] [place] [address] END OF REPORT
--- NOTE | ~2018-01-16 | EC ---
PATIENT:TOBY MELENDEZ DATE OF SERVICE: 01/17/18 SEX: M MEDICAL RECORD: [id number] DATE OF : [birth year] LOCATION:D. D.211 AGE OF PATIENT: 37 ADMISSION DATE: 01/17/18 REFERRING PHYSICIAN: INTERPRETING PHYSICIAN: DAMION BLEDSOE MD ECHOCARDIOGRAM REPORT ECHO CHARGES 4 ECHO COMPLETE Date: 01/17/18 CLINICAL DIAGNOSIS: RIGHT SIDE HEART FAILURE, PULMONARY HTN ECHOCARDIOGRAPHIC MEASUREMENTS (adult normal given) AC root (d.<3.7cm) 3.7 cm LV Septum d (<1.2 cm> 1.4 cm Valve Excursion 2.2 cm LV Septum (systole) 1.5 cm Left Atria (s.<4.0cm> 4.0 cm LVPW d(<1.2cm) 1.3 cm RV (d.<2.3cm) 6.0 cm LVPW (sytole) 1.7 cm LV diastole(<5.6CM) 4.2 cm MV E-F(>70mm/sec) cm LV systole 2.3 cm LVOT Diameter 1.9 cm MV exc.(>10mm) 1.6 cm Est.ejection fraction (50-75%) % DOPPLER: LVIT cm/sec A 58.0 cm/sec E 80.0 cm/sec LA cm/sec RVSP 118 mmHg LVOT 137 cm/sec AOP1/2T m/s Asc. Ao 135 cm/sec RVOT 79 cm/sec RA cm/sec PA 152 cm/sec AV Gradient Peak 7.32 mmHg AV Mean 3.72 mmHg AV Area 3.1 cm MV Gradient Peak mmHg MV Mean mmHg MV Area cm COMMENTS: Tunnel Inspector: Sarah WOODWARD Medical Office Representative: 4 Dr. Bledsoe TAPE# PACS Pericardial Effusion N DATE OF SERVICE: PROCEDURE: Transthoracic echocardiogram. FINDINGS: 1. Left ventricle shows mild left ventricular hypertrophy. Ejection fraction is 60% to 65%. There is no regional wall motion abnormalities. 2. The left atrium is normal. 3. The aortic valve is normal. 4. The mitral valve is normal. ECHOCARDIOGRAM REPORT [id number] TOBY MELENDEZ 5. The right ventricle is severely dilated and there is right ventricular hypertrophy. There is shown to be moderate to severe tricuspid regurgitation. The mitral valve is normal. The aortic valve is normal. The RV pressures appear to be in the 95 mmHg to 105 mmHg range, which appears to be his normal. The IVC and the hepatic veins are dilated and they do not contract with inspiration. IMPRESSION: The patient has evidence of pulmonary arterial hypertension with peak pulmonary systolic pressures as high as 110 mmHg. This appears to be his baseline. RV function is dilated and reduced and there is right ventricular hypertrophy. TRANSINT:[id number] Voice Confirmation ID: [id number] DOCUMENT ID: [id number] DAMION BLEDSOE MD CC: [id number] DICTATION DATE: 01/20/18 1025 RESEARCH ASSOCIATE QUALITY CONTROL QC: 01/20/18 1051 DIS IN 01/17/18 [facility] [address] [place] [id number]
[~2018-01-16 20:15] MED LIST changes: +ADCIRCA20 MG PO; +K-TAB10 MEQ PO; +KLOR-CON20 MEQ/PKT PO; +LASIX40 MG PO
[2018-01-16 20:47] LABS: BASOPHILS 0.2 % (0-2); EOSINOPHILS 1.5 % (0-7); HEMATOCRIT 44.1 % (42.0-54.0); HEMOGLOBIN 15.2 g/dL (13.5-17.5); IMMATURE GRANULOCYTES 0.2 % (0-5); LYMPHOCYTES 21.3 % (15-50); MCH 31.3 pg (26.0-34.0); MCHC 34.5 g/dL (31.0-37.0); MCV 90.9 fL (80.0-100.0); MEAN PLATELET VOLUME 10.8 fL (7.4-10.4); MONOCYTES 8.7 % (2-11); NEUTROPHILS 68.1 % (40-80); PLATELET COUNT 193 10x3/uL (130-400); RBC 4.85 10x6/uL (4.20-6.10); RDW 13.1 % (11.5-14.5); WBC 8.6 10x3/uL (4.8-10.8)
[2018-01-16 21:14] LABS: ALBUMIN 3.8 g/dL (3.4-5.0); ALKALINE PHOSPHATASE 67 U/L (46-116); ALT (SGPT) 29 U/L (10-68); CALC OSMOLALITY 278 mosm/kg (275-300); CALCIUM 8.7 mg/dL (8.5-10.1); CARBON DIOXIDE 27.6 mmol/L (21.0-32.0); CHLORIDE - SERUM 103 mmol/L (98-107); CREATININE - SERUM 1.1 mg/dL (0.6-1.3); GLUCOSE 92 mg/dL (74-106); POTASSIUM - SERUM 3.9 mmol/L (3.5-5.1); PROTEIN - SERUM 7.8 g/dL (6.4-8.2); SODIUM 139 mmol/L (136-145); UREA NITROGEN 15 mg/dL (7-18); eGFR NON AFRICAN AMERICAN 81 mL/min (90-120)
[2018-01-16 21:27] LABS: CKMB 0.9 U/L (0.0-3.6); CREATINE KINASE 53 UL (21-232); MAGNESIUM - SERUM 2.1 mg/dL (1.8-2.4); PRO BNP 1785 pg/mL (0-125); THYROID STIMULATING HORMONE 3.49 uIU/mL (0.36-3.74); TROPONIN-I < 0.017 ng/mL (0.000-0.060)
[2018-01-16 22:13] LABS: APTT 46.4 SECONDS (22.8-39.4); PROTIME 21.1 SECONDS (11.6-15.0)
[2018-01-16] MEDS ORDERED: ADCIRCA20 MG PO (23:52)
[2018-01-17 01:33] VITALS: BP 105/65; BMI 24.4
[2018-01-17 05:21] LABS: BASOPHILS 0.1 % (0-2); EOSINOPHILS 1.6 % (0-7); HEMATOCRIT 42.9 % (42.0-54.0); HEMOGLOBIN 14.5 g/dL (13.5-17.5); IMMATURE GRANULOCYTES 0.2 % (0-5); LYMPHOCYTES 21.1 % (15-50); MCH 30.7 pg (26.0-34.0); MCHC 33.8 g/dL (31.0-37.0); MCV 90.9 fL (80.0-100.0); MEAN PLATELET VOLUME 11.3 fL (7.4-10.4); MONOCYTES 10.3 % (2-11); NEUTROPHILS 66.7 % (40-80); PLATELET COUNT 201 10x3/uL (130-400); RBC 4.72 10x6/uL (4.20-6.10); RDW 13.1 % (11.5-14.5); WBC 9.1 10x3/uL (4.8-10.8)
[2018-01-17 05:46] LABS: ALBUMIN 3.3 g/dL (3.4-5.0); ALKALINE PHOSPHATASE 59 U/L (46-116); ALT (SGPT) 25 U/L (10-68); BILIRUBIN - TOTAL 0.64 mg/dL (0.2-1.3); CALC OSMOLALITY 278 mosm/kg (275-300); CALCIUM 8.6 mg/dL (8.5-10.1); CARBON DIOXIDE 25.1 mmol/L (21.0-32.0); CHLORIDE - SERUM 105 mmol/L (98-107); CKMB 0.8 U/L (0.0-3.6); CREATINE KINASE 47 UL (21-232); CREATININE - SERUM 1.1 mg/dL (0.6-1.3); GLUCOSE 87 mg/dL (74-106); POTASSIUM - SERUM 4.1 mmol/L (3.5-5.1); PRO BNP 2467 pg/mL (0-125); SODIUM 140 mmol/L (136-145); TROPONIN-I < 0.017 ng/mL (0.000-0.060); UREA NITROGEN 16 mg/dL (7-18); eGFR NON AFRICAN AMERICAN 81 mL/min (90-120)
[2018-01-17 08:03] VITALS: BP 119/69
[2018-01-17 11:19] VITALS: BP 111/63
[2018-01-17 12:59] VITALS: BMI 24.4
[2018-01-17 13:25] VITALS: Ht 182.9 cm; Wt 81.7 kg
[2018-01-17 15:50] VITALS: BP 130/69
== END 2018-01-17 16:14 | disposition left against medical advice (07) | DRG 310 ==
LOC: D.ER 20:15 → D.M2 22:57 → OBSVTIME 22:57 → D.M2 22:57
PROVIDERS: Family Medicine
DX: I47.1 Supraventricular tachycardia (principal); I48.0 Paroxysmal atrial fibrillation; Z79.01 Long term (current) use of anticoagulants; Z86.711 Personal history of pulmonary embolism; I10 Essential (primary) hypertension; G89.29 Other chronic pain; M54.9 Dorsalgia, unspecified; F41.9 Anxiety disorder, unspecified; I27.20 Pulmonary hypertension, unspecified

== ENCOUNTER 2018-04-11 19:47 | Emergency (ER) | payer MEDICAID ==
[~2018-04-11] VITALS: Ht 182.9 cm; Wt 86.4 kg
[2018-04-11 19:57] VITALS: Ht 182.9 cm; Wt 86.4 kg
[2018-04-11] MEDS ORDERED: LETAIRIS5 MG PO (20:01)
[2018-04-11 20:17] LABS: BASOPHILS 0.3 % (0-2); EOSINOPHILS 1.6 % (0-7); HEMATOCRIT 42.7 % (42.0-54.0); HEMOGLOBIN 14.5 g/dL (13.5-17.5); IMMATURE GRANULOCYTES 0.3 % (0-5); LYMPHOCYTES 18.1 % (15-50); MCH 30.5 pg (26.0-34.0); MCV 89.7 fL (80.0-100.0); MEAN PLATELET VOLUME 10.9 fL (7.4-10.4); MONOCYTES 9.8 % (2-11); NEUTROPHILS 69.9 % (40-80); PLATELET COUNT 227 10x3/uL (130-400); RBC 4.76 10x6/uL (4.20-6.10); RDW 13.1 % (11.5-14.5)
[2018-04-11 20:26] LABS: APTT 35.6 SECONDS (22.8-39.4); INR 1.33 (0.85-1.17); PROTIME 15.9 SECONDS (11.6-15.0)
[2018-04-11 20:33] LABS: ALBUMIN 3.6 g/dL (3.4-5.0); ALKALINE PHOSPHATASE 66 U/L (46-116); ALT (SGPT) 28 U/L (10-68); BILIRUBIN - TOTAL 0.59 mg/dL (0.2-1.3); CALC OSMOLALITY 282 mosm/kg (275-300); CALCIUM 8.7 mg/dL (8.5-10.1); CARBON DIOXIDE 26.7 mmol/L (21.0-32.0); CHLORIDE - SERUM 106 mmol/L (98-107); CREATININE - SERUM 1.3 mg/dL (0.6-1.3); GLUCOSE 100 mg/dL (74-106); POTASSIUM - SERUM 4.1 mmol/L (3.5-5.1); PROTEIN - SERUM 7.4 g/dL (6.4-8.2); SODIUM 142 mmol/L (136-145); UREA NITROGEN 12 mg/dL (7-18); eGFR NON AFRICAN AMERICAN 67 mL/min (90-120)
[2018-04-11 20:48] LABS: CKMB 0.7 U/L (0.0-3.6); CREATINE KINASE 43 UL (21-232); PRO BNP 1586 pg/mL (0-125)
[2018-04-11 20:49] LABS: TROPONIN-I < 0.017 ng/mL (0.000-0.060)
--- NOTE | 2018-04-11 21:26 | NUR ---
CALLED TO ER TO DRAWN ABG. PT DIFFICULT STICK. BEGAN QUESTIONING RT. ASKED THAT PT BE STILL AND NOT QUESTION WOULD BE JUST A FEW MOMENTS. PT STATES "TAKE IT OUT" AND REACHES TO GRAB NEEDLE. RT SAID "NO DON'T PULL IT I NEED TO HOLD PRESSURE" PT STATES " YOU NEED TO GET OUT" RT INFORMED PT PRESSURE SHOULD BE HELD. WAS PT REFUSING ABG HE HAD THAT RIGHT. PT GLARED WITH RIGHT SIDE SHIFT AND SAID "YOU NEED TO LEAVE YOU SUCK." INFORMED RUSSELL PORTER OF INTERACTION SHE IS AWARE OF PT AGITATION.
[2018-04-11] MEDS ORDERED: COREG6.25 MG PO (21:55)
[2018-04-11 22:30] VITALS: BP 118/64
== END 2018-04-11 22:30 | disposition home or self-care (01) ==
LOC: D.ER 19:47
PROVIDERS: Emergency Medicine
DX: R00.2 Palpitations (principal); Z86.79 Personal history of other diseases of the circulatory system; I45.10 Unspecified right bundle-branch block

== ENCOUNTER 2018-05-12 02:26 | Emergency (ER) | payer MEDICAID ==
[~2018-05-12] VITALS: Ht 182.9 cm; Wt 86.2 kg
[~2018-05-12 02:26] MED LIST changes: +COREG6.25 MG PO; +LETAIRIS5 MG PO
[2018-05-12] MEDS ORDERED: LOPRESSOR25 MG PO (02:27)
[2018-05-12 02:29] VITALS: Ht 182.9 cm; Wt 86.2 kg
[2018-05-12 02:48] LABS: BASOPHILS 0.3 % (0-2); EOSINOPHILS 1.9 % (0-7); IMMATURE GRANULOCYTES 0.1 % (0-5); LYMPHOCYTES 24.5 % (15-50); MCH 30.5 pg (26.0-34.0); MCHC 34.1 g/dL (31.0-37.0); MCV 89.6 fL (80.0-100.0); MEAN PLATELET VOLUME 11.2 fL (7.4-10.4); MONOCYTES 8.7 % (2-11); NEUTROPHILS 64.5 % (40-80); RBC 4.91 10x6/uL (4.20-6.10); WBC 7.7 10x3/uL (4.8-10.8)
[2018-05-12 02:51] LABS: PLATELET COUNT 178 10x3/uL (130-400)
[2018-05-12 03:01] LABS: APTT 47.1 SECONDS (22.8-39.4); INR 2.05 (0.85-1.17); PROTIME 22.5 SECONDS (11.6-15.0)
[2018-05-12 03:05] LABS: ALBUMIN 3.8 g/dL (3.4-5.0); ALKALINE PHOSPHATASE 77 U/L (46-116); ALT (SGPT) 29 U/L (10-68); BILIRUBIN - TOTAL 0.63 mg/dL (0.2-1.3); CALC OSMOLALITY 279 mosm/kg (275-300); CALCIUM 8.4 mg/dL (8.5-10.1); CARBON DIOXIDE 26.8 mmol/L (21.0-32.0); CHLORIDE - SERUM 102 mmol/L (98-107); CREATININE - SERUM 1.4 mg/dL (0.6-1.3); GLUCOSE 116 mg/dL (74-106); POTASSIUM - SERUM 3.5 mmol/L (3.5-5.1); PROTEIN - SERUM 7.7 g/dL (6.4-8.2); SODIUM 139 mmol/L (136-145); UREA NITROGEN 16 mg/dL (7-18); eGFR NON AFRICAN AMERICAN 61 mL/min (90-120)
[2018-05-12 03:16] LABS: CKMB 0.6 U/L (0.0-3.6); CREATINE KINASE 52 UL (21-232); MAGNESIUM - SERUM 2.1 mg/dL (1.8-2.4); PRO BNP 1686 pg/mL (0-125); TROPONIN-I < 0.017 ng/mL (0.000-0.060)
[2018-05-12 04:47] VITALS: BP 114/77
== END 2018-05-12 04:47 | disposition home or self-care (01) ==
LOC: D.ER 02:26
PROVIDERS: Family Medicine
DX: I27.20 Pulmonary hypertension, unspecified (principal); I50.9 Heart failure, unspecified; R00.0 Tachycardia, unspecified; Z99.81 Dependence on supplemental oxygen

== ENCOUNTER 2018-06-03 09:58 | Emergency (ER) | payer MEDICAID ==
[~2018-06-03] VITALS: Ht 182.9 cm; Wt 86.4 kg
[~2018-06-03 09:58] MED LIST changes: +LOPRESSOR25 MG PO
[2018-06-03 10:16] VITALS: Ht 182.9 cm; Wt 86.4 kg
[2018-06-03 10:47] VITALS: BP 120/62
== END 2018-06-03 11:02 | disposition home or self-care (01) ==
LOC: D.ER 09:58
DX: I27.0 Primary pulmonary hypertension (principal); I27.82 Chronic pulmonary embolism; R00.2 Palpitations

== ENCOUNTER 2018-08-30 20:40 | Emergency (ER) | payer MEDICARE ==
[~2018-08-30] VITALS: Ht 182.9 cm; Wt 86.4 kg
[2018-08-30 20:44] VITALS: Ht 182.9 cm; Wt 86.4 kg
[2018-08-30 21:17] LABS: BASOPHILS 0.1 % (0-2); EOSINOPHILS 1.7 % (0-7); HEMATOCRIT 42.7 % (42.0-54.0); HEMOGLOBIN 14.5 g/dL (13.5-17.5); IMMATURE GRANULOCYTES 0.2 % (0-5); LYMPHOCYTES 17.9 % (15-50); MCH 30.5 pg (26.0-34.0); MCV 89.9 fL (80.0-100.0); MEAN PLATELET VOLUME 10.5 fL (7.4-10.4); MONOCYTES 10.5 % (2-11); NEUTROPHILS 69.6 % (40-80); PLATELET COUNT 191 10x3/uL (130-400); RBC 4.75 10x6/uL (4.20-6.10); RDW 14.5 % (11.5-14.5)
[2018-08-30 21:28] LABS: ALBUMIN 3.8 g/dL (3.4-5.0); ALKALINE PHOSPHATASE 73 U/L (46-116); ALT (SGPT) 36 U/L (10-68); CALC OSMOLALITY 282 mosm/kg (275-300); CALCIUM 8.7 mg/dL (8.5-10.1); CARBON DIOXIDE 27.5 mmol/L (21.0-32.0); CHLORIDE - SERUM 107 mmol/L (98-107); CREATININE - SERUM 1.1 mg/dL (0.6-1.3); GLUCOSE 99 mg/dL (74-106); POTASSIUM - SERUM 4.1 mmol/L (3.5-5.1); PROTEIN - SERUM 7.3 g/dL (6.4-8.2); SODIUM 142 mmol/L (136-145); UREA NITROGEN 12 mg/dL (7-18); eGFR NON AFRICAN AMERICAN 80 mL/min (90-120)
[2018-08-30 21:31] LABS: TROPONIN-I < 0.017 ng/mL (0.000-0.060)
[2018-08-30] MEDS ORDERED: TOPROL XL50 MG PO (23:18)
[2018-08-30 23:39] VITALS: BP 126/75
== END 2018-08-30 23:40 | disposition home or self-care (01) ==
LOC: D.ER 20:40
PROVIDERS: Emergency Medicine
DX: R00.0 Tachycardia, unspecified (principal); Z79.01 Long term (current) use of anticoagulants; Z86.711 Personal history of pulmonary embolism; I27.20 Pulmonary hypertension, unspecified

== ENCOUNTER 2018-09-02 21:12 | Emergency (ER) | payer MEDICARE ==
[~2018-09-02] VITALS: Ht 182.9 cm; Wt 86.4 kg
[~2018-09-02 21:12] MED LIST changes: +TOPROL XL50 MG PO
[2018-09-02 21:14] VITALS: Ht 182.9 cm; Wt 86.4 kg
[2018-09-02 21:40] LABS: BASOPHILS 0.1 % (0-2); EOSINOPHILS 1.5 % (0-7); HEMATOCRIT 43.8 % (42.0-54.0); HEMOGLOBIN 14.8 g/dL (13.5-17.5); IMMATURE GRANULOCYTES 0.1 % (0-5); LYMPHOCYTES 18.8 % (15-50); MCH 30.9 pg (26.0-34.0); MCHC 33.8 g/dL (31.0-37.0); MCV 91.4 fL (80.0-100.0); MEAN PLATELET VOLUME 10.4 fL (7.4-10.4); MONOCYTES 10.8 % (2-11); NEUTROPHILS 68.7 % (40-80); PLATELET COUNT 189 10x3/uL (130-400); RBC 4.79 10x6/uL (4.20-6.10); RDW 14.5 % (11.5-14.5); WBC 6.9 10x3/uL (4.8-10.8)
[2018-09-02 21:54] LABS: APTT 35.5 SECONDS (22.8-39.4); INR 1.37 (0.85-1.17); PROTIME 16.3 SECONDS (11.6-15.0)
[2018-09-02 22:08] LABS: ALBUMIN 3.8 g/dL (3.4-5.0); ALKALINE PHOSPHATASE 75 U/L (46-116); ALT (SGPT) 44 U/L (10-68); BILIRUBIN - TOTAL 0.71 mg/dL (0.2-1.3); CALC OSMOLALITY 278 mosm/kg (275-300); CALCIUM 8.5 mg/dL (8.5-10.1); CARBON DIOXIDE 26.9 mmol/L (21.0-32.0); CHLORIDE - SERUM 108 mmol/L (98-107); CREATININE - SERUM 1.1 mg/dL (0.6-1.3); GLUCOSE 75 mg/dL (74-106); POTASSIUM - SERUM 4.3 mmol/L (3.5-5.1); PROTEIN - SERUM 7.4 g/dL (6.4-8.2); SODIUM 141 mmol/L (136-145); UREA NITROGEN 10 mg/dL (7-18); eGFR NON AFRICAN AMERICAN 80 mL/min (90-120)
[2018-09-02 22:19] LABS: CKMB 0.8 U/L (0.0-3.6); CREATINE KINASE 59 UL (21-232); MAGNESIUM - SERUM 2.3 mg/dL (1.8-2.4); PRO BNP 2369 pg/mL (0-125)
[2018-09-02 22:25] LABS: TROPONIN-I < 0.017 ng/mL (0.000-0.060)
[2018-09-02 23:09] VITALS: BP 126/75
== END 2018-09-02 23:09 | disposition home or self-care (01) ==
LOC: D.ER 21:12
PROVIDERS: Family Medicine
DX: R00.0 Tachycardia, unspecified (principal); I42.9 Cardiomyopathy, unspecified

== ENCOUNTER 2018-11-27 21:03 | Emergency (ER) | payer MEDICARE ==
[~2018-11-27] VITALS: Ht 182.9 cm; Wt 88.6 kg
[2018-11-27 21:21] VITALS: BP 137/77; Ht 182.9 cm; Wt 88.6 kg
== END 2018-11-27 23:00 | disposition left against medical advice (07) ==
LOC: D.ER 21:03
DX: Z76.0 Encounter for issue of repeat prescription (principal)

== ENCOUNTER 2019-02-12 00:56 | Inpatient (IN) | payer MEDICARE ==
[~2019-02-12] VITALS: Ht 182.9 cm; Wt 88.5 kg
--- NOTE | ~2019-02-12 | EC ---
PATIENT:TOBY MELENDEZ DATE OF SERVICE: 02/12/19 SEX: M MEDICAL RECORD: [id number] DATE OF : [birth year] LOCATION:D.[facility] AGE OF PATIENT: 38 ADMISSION DATE: 02/12/19 REFERRING PHYSICIAN: INTERPRETING PHYSICIAN: TARI ASH MD ECHOCARDIOGRAM REPORT ECHO CHARGES 4 ECHO COMPLETE Date: 02/12/19 CLINICAL DIAGNOSIS: CHF ECHOCARDIOGRAPHIC MEASUREMENTS (adult normal given) AC root (d.<3.7cm) 3.0 cm LV Septum d (<1.2 cm> 1.1 cm Valve Excursion 2.3 cm LV Septum (systole) 1.4 cm Left Atria (s.<4.0cm> 4.1 cm LVPW d(<1.2cm) 1.0 cm RV (d.<2.3cm) 4.8 cm LVPW (sytole) 1.6 cm LV diastole(<5.6CM) 4.4 cm MV E-F(>70mm/sec) cm LV systole 1.6 cm LVOT Diameter 2.0 cm MV exc.(>10mm) cm Est.ejection fraction (50-75%) % DOPPLER: LVIT cm/sec A 46.0 cm/sec E 85.0 cm/sec LA cm/sec RVSP 103.0mmHg LVOT 144 cm/sec AOP1/2T m/s Asc. Ao 168 cm/sec RVOT 61.0 cm/sec RA cm/sec PA 108 cm/sec AV Gradient Peak 11.3 mmHg AV Mean 5.7 mmHg AV Area 2.2 cm MV Gradient Peak 4.8 mmHg MV Mean 1.7 mmHg MV Area cm COMMENTS: Sr Account Executive: Toña SLAUGHTER Product Safety Compliance Leader: Anette Lyons TAPE# PACS Pericardial Effusion N DATE OF SERVICE: 02/12/2019 FINDINGS: 1. Left ventricular chamber size is within normal limits. Left ventricular systolic function is mildly depressed at 40%. 2. Left atrium is enlarged at 4.1 cm. Right atrium and right ventricular chamber sizes are severely dilated. 3. Valvular structures have normal structure and motion. 4. Doppler interrogation reveals severe tricuspid regurgitation and marked pulmonary hypertension. Pulmonary artery pressure estimated 103 mmHg. ECHOCARDIOGRAM REPORT [id number] TOBY MELENDEZ 5. Small pericardial effusion is present. This is not hemodynamically significant. No evidence of left ventricular thrombus. TRANSINT:[id number] Voice Confirmation ID: [id number] DOCUMENT ID: [id number] TARI ASH MD CC: [id number] DICTATION DATE: 02/13/19 1256 MILLINERY COPYIST: 02/13/19 1720 ADM IN [facility] [address] [id number]
[~2019-02-12 00:56] MED LIST changes: +LETAIRIS10 MG PO; -LETAIRIS5 MG PO; +REMODULIN
[2019-02-12 01:31] LABS: BASOPHILS 0.1 % (0-2); EOSINOPHILS 1.5 % (0-7); HEMATOCRIT 41.4 % (42.0-54.0); HEMOGLOBIN 13.9 g/dL (13.5-17.5); IMMATURE GRANULOCYTES 0.1 % (0-5); LYMPHOCYTES 14.7 % (15-50); MCH 31.1 pg (26.0-34.0); MCHC 33.6 g/dL (31.0-37.0); MCV 92.6 fL (80.0-100.0); MEAN PLATELET VOLUME 10.4 fL (7.4-10.4); MONOCYTES 10.8 % (2-11); NEUTROPHILS 72.8 % (40-80); PLATELET COUNT 155 10x3/uL (130-400); RBC 4.47 10x6/uL (4.20-6.10); RDW 14.1 % (11.5-14.5); WBC 6.8 10x3/uL (4.8-10.8)
[2019-02-12 01:37] LABS: CALC OSMOLALITY 268 mosm/kg (275-300); CALCIUM 8.2 mg/dL (8.5-10.1); CARBON DIOXIDE 26.4 mmol/L (21.0-32.0); CHLORIDE - SERUM 105 mmol/L (98-107); CREATININE - SERUM 0.9 mg/dL (0.6-1.3); GLUCOSE 101 mg/dL (74-106); SODIUM 135 mmol/L (136-145); UREA NITROGEN 10 mg/dL (7-18); eGFR NON AFRICAN AMERICAN > 90 mL/min (90-120)
[2019-02-12 01:56] LABS: ALBUMIN 3.6 g/dL (3.4-5.0); ALKALINE PHOSPHATASE 76 U/L (46-116); ALT (SGPT) 38 U/L (10-68); CKMB 0.7 U/L (0.0-3.6); CREATINE KINASE 38 UL (21-232); PRO BNP 2485 pg/mL (0-125); TROPONIN-I < 0.017 ng/mL (0.000-0.060)
--- NOTE | 2019-02-12 03:08 | NUR ---
PT TO RADIOLOGY.
--- NOTE | 2019-02-12 03:22 | NUR ---
PT RETURNED FROM RADIOLOGY.
[2019-02-12] MEDS ORDERED: TOPROL XL50 MG PO (05:05)
[2019-02-12] MEDS ORDERED: FUROSEMIDE40 MG PO (05:08)
[2019-02-12 05:47] VITALS: BP 125/74; BMI 26.5
--- NOTE | 2019-02-12 07:12 | NUR ---
PT IS RESTING IN BED WITH EYES CLOSED. RESPIRATIONS ARE EVEN AND UNLABORED. PT IS EASILY AROUSED WITH VERBAL STIMULATION. PT IS AAO X 4 UPON AROUSAL. PT WITH INFUSION PUMP TO RIGHT FLANK THAT IS FROM HOME. PUMP INSERTION SITE IS RED/WARM/TENDER TO TOUCH. PIV TO LEFT AC INFUSING WITHOUT DIFFICULTY. PT DENIES PRESENCE OF PAIN/N/V. BED IS IN THE LOWEST POSITION. CALL LIGHT AND BEDSIDE TABLE ARE WITHIN REACH. SIDE RAILS X 2. PT DENIES FURTHER NEEDS. WILL CONT TO MONITOR.
--- NOTE | 2019-02-12 08:00 | NUR ---
PIV TO LEFT AC "WONT STOP M AKING THAT MACHINE BEEP" PER PT. PT REQUESTS RESITE OF PIV. 22G TO RIGHT HAND PLACED X 1 ATTEMPT. RIGHT HAND PIV INFUSING WITHOUT DIFFICULTY. BED IS IN THE LOWEST POSITION. CALL LIGHT AND BEDSIDE TABLE ARE WITHIN REACH. SIDE RAILS X 2. PT DENIES FURTHER NEEDS. WILL CONT TO MONITOR.
--- NOTE | 2019-02-12 10:09 | NUR ---
PT OWN MEDICATION TAKEN TO PHARMACY PER NURSING INSTRUCTION. PT REFUSES TO ALLOW REMODULIN TO BE TAKEN AND STATES "THIS IS MY PUMP AND YOU CANNOT TAKE IT. IT STAYS WITH ME ALL OF THE TIME". TADALAFIL AND AMBRISENTEN TAKEN TO PHARMACY FOR LABELS.
[2019-02-12 10:45] LABS: APPEARANCE CLEAR (CLEAR); BILIRUBIN NEGATIVE (NEGATIVE); COLOR YELLOW (YELLOW); GLUCOSE NEGATIVE (NEGATIVE); KETONE NEGATIVE (NEGATIVE); NITRITE NEGATIVE (NEGATIVE); PROTEIN NEGATIVE (NEGATIVE); SPECIFIC GRAVITY 1.015 (1.005-1.020); UDS - AMPHET NEGATIVE QUAL (NEGATIVE); UDS - BARB NEGATIVE QUAL (NEGATIVE); UDS - BENZO NEGATIVE QUAL (NEGATIVE); UDS - COCAINE NEGATIVE QUAL (NEGATIVE); UDS - OPIATE NEGATIVE QUAL (NEGATIVE); UDS - PCP NEGATIVE QUAL (NEGATIVE); UDS - THC NEGATIVE QUAL (NEGATIVE); UROBILINOGEN NORMAL (NORMAL)
[2019-02-12 10:53] VITALS: BP 115/62
[2019-02-12 12:45] VITALS: BP 124/66
--- NOTE | 2019-02-12 13:05 | NUR ---
PT REQUESTS TO HAVE TADALAFIL NOW AND TO SCHEDULE MEDICATION ADMINISTRATION AT THIS TIME DAILY. PT ALSO REQUESTS TO SCHEDULE AMBRISENTAN DAILY AT 2100. PT STATES "I SPACE THOSE 2 OUT AND I CANNOT TAKE THEM TOGETHER". WILL PLACE ORDERS.
[2019-02-12 14:58] VITALS: BMI 26.4
[2019-02-12 15:29] VITALS: Ht 182.9 cm; Wt 88.5 kg
[2019-02-12 17:32] VITALS: BP 122/63
--- NOTE | 2019-02-12 20:00 | NUR ---
A&O X 4, AMBULATES INDEPENDENTLY. REMODULIN PUMP PRESENT ON RIGHT SIDE OF LOWER CHEST. SURROUNDING AREA IS REDDENED AND EDEMATOUS AND IS REPORTEDLY TENDER. 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 DENIES NEEDS AT THIS TIME, WILL CONTINUE TO MONITOR.
[2019-02-12 20:38] VITALS: BP 109/66
[2019-02-12 23:55] VITALS: BP 113/72
[2019-02-13 05:54] VITALS: BP 112/66
[2019-02-13 06:08] LABS: BASOPHILS 0.1 % (0-2); EOSINOPHILS 1.1 % (0-7); HEMATOCRIT 42.3 % (42.0-54.0); HEMOGLOBIN 13.8 g/dL (13.5-17.5); IMMATURE GRANULOCYTES 0.1 % (0-5); LYMPHOCYTES 18.4 % (15-50); MCH 30.5 pg (26.0-34.0); MCHC 32.6 g/dL (31.0-37.0); MCV 93.4 fL (80.0-100.0); MEAN PLATELET VOLUME 11.1 fL (7.4-10.4); MONOCYTES 10.8 % (2-11); NEUTROPHILS 69.5 % (40-80); PLATELET COUNT 179 10x3/uL (130-400); RBC 4.53 10x6/uL (4.20-6.10); RDW 14.3 % (11.5-14.5); WBC 7.5 10x3/uL (4.8-10.8)
[2019-02-13 06:12] LABS: CALC OSMOLALITY 277 mosm/kg (275-300); CALCIUM 8.3 mg/dL (8.5-10.1); CARBON DIOXIDE 22.2 mmol/L (21.0-32.0); CHLORIDE - SERUM 105 mmol/L (98-107); CREATININE - SERUM 1.1 mg/dL (0.6-1.3); GLUCOSE 123 mg/dL (74-106); POTASSIUM - SERUM 3.5 mmol/L (3.5-5.1); SODIUM 139 mmol/L (136-145); UREA NITROGEN 11 mg/dL (7-18); eGFR NON AFRICAN AMERICAN 80 mL/min (90-120)
--- NOTE | 2019-02-13 06:34 | NUR ---
I have reviewed this patient and I concur with the Shift Assessment completed by the Licensed Practical Nurse today this shift.
[2019-02-13 09:47] VITALS: BP 112/57
[2019-02-13 13:36] VITALS: BP 116/61
[2019-02-13 17:54] VITALS: BP 119/72
--- NOTE | 2019-02-13 20:10 | NUR ---
PATIENT STATES HE IS BEING DISCHARGED TONIGHT OR HE WILL SIGN PAPERS BUT ONE WAY OR ANOTHER HE IS LEAVING. ATTEMPTED TO EXPLAIN TO PATIENT IF HE LEAVES [facility] HIS INSURANCE WILL NOT PAY FOR HIS STAY. PATIENT STATES ALL THREE DOCTORS SAID HE COULD LEAVE TODAY. EXPLAINED THERE WERE NO ORDERS IN COMPUTER.THIS NURSE WOULD HAVE TO CONTACT DOCTOR. PATIENT STATES " DO WHAT EVER YOU HAVE TO DO". GROUNDSKEEPER NOTIFED. [facility] PAPERWORK FOR PATIENT. INFORMED PATIENT DISCHARGE ORDERS WERE BEING DONE. STATES UNDERSTANDING.
--- NOTE | 2019-02-13 22:10 | NUR ---
DISCHARGE INSTRUCTIONS GIVEN TO PATIENT.ACKNOWLEDGES UNDERSTANDING FOR FOLLOW UP WITH ESTABLISHED DOCTORS IN [place] AND FOLLOW UP WITH PCP IN ONE WEEK. PATIENTS HOME MEDS GIVEN TO PATIENT. DISCHARGED TO HOME WITH FAMILY VIA FAMILY CAR.BELONGING SENT WITH PATIENT.
== END 2019-02-13 22:13 | disposition home or self-care (01) | DRG 291 ==
LOC: D.ER 00:56 → D.MS 04:04
PROVIDERS: Family Medicine; ADMIT Internal Medicine Nephrology; ATTEND Internal Medicine Nephrology
DX: I11.0 Hypertensive heart disease with heart failure (principal); J96.21 Acute and chronic respiratory failure with hypoxia; J98.11 Atelectasis; E87.1 Hypo-osmolality and hyponatremia; I47.1 Supraventricular tachycardia; R04.2 Hemoptysis; D68.32 Hemorrhagic disorder due to extrinsic circulating anticoagulants; I50.33 Acute on chronic diastolic (congestive) heart failure; I27.20 Pulmonary hypertension, unspecified; I07.1 Rheumatic tricuspid insufficiency; F41.8 Other specified anxiety disorders; K21.9 Gastro-esophageal reflux disease without esophagitis; R59.0 Localized enlarged lymph nodes; Z79.01 Long term (current) use of anticoagulants

== ENCOUNTER 2019-03-04 04:03 | Emergency (ER) | payer MEDICARE ==
[~2019-03-04] VITALS: Ht 182.9 cm; Wt 88.6 kg
[~2019-03-04 04:03] MED LIST changes: +FUROSEMIDE40 MG PO
[2019-03-04 04:08] VITALS: Ht 182.9 cm; Wt 88.6 kg
[2019-03-04] MEDS ORDERED: BUMEX2 MG PO (04:12)
[2019-03-04 04:25] LABS: BASOPHILS 0.2 % (0-2); EOSINOPHILS 2.3 % (0-7); HEMATOCRIT 42.4 % (42.0-54.0); HEMOGLOBIN 14.1 g/dL (13.5-17.5); MCH 30.4 pg (26.0-34.0); MCHC 33.3 g/dL (31.0-37.0); MCV 91.4 fL (80.0-100.0); MEAN PLATELET VOLUME 11.7 fL (7.4-10.4); MONOCYTES 12.3 % (2-11); NEUTROPHILS 65.2 % (40-80); PLATELET COUNT 166 10x3/uL (130-400); RBC 4.64 10x6/uL (4.20-6.10); RDW 14.2 % (11.5-14.5); WBC 5.1 10x3/uL (4.8-10.8)
[2019-03-04 04:48] LABS: CALC OSMOLALITY 273 mosm/kg (275-300); CALCIUM 8.6 mg/dL (8.5-10.1); CARBON DIOXIDE 25.8 mmol/L (21.0-32.0); CHLORIDE - SERUM 103 mmol/L (98-107); CREATININE - SERUM 0.8 mg/dL (0.6-1.3); GLUCOSE 110 mg/dL (74-106); SODIUM 136 mmol/L (136-145); UREA NITROGEN 15 mg/dL (7-18); eGFR NON AFRICAN AMERICAN > 90 mL/min (90-120)
[2019-03-04 04:56] LABS: POTASSIUM - SERUM 5.5 mmol/L (3.5-5.1)
[2019-03-04 05:02] LABS: ALBUMIN 3.5 g/dL (3.4-5.0); BILIRUBIN - TOTAL 1.03 mg/dL (0.2-1.3); LIPASE 76 U/L (73-393); MAGNESIUM - SERUM 2.2 mg/dL (1.8-2.4); PROTEIN - SERUM 7.6 g/dL (6.4-8.2); THYROID STIMULATING HORMONE 2.41 uIU/mL (0.36-3.74)
[2019-03-04 05:09] LABS: ALKALINE PHOSPHATASE 90 U/L (46-116); ALT (SGPT) 50 U/L (10-68); TROPONIN-I < 0.017 ng/mL (0.000-0.060)
[2019-03-04 06:56] VITALS: BP 104/64
== END 2019-03-04 06:57 | disposition home or self-care (01) ==
LOC: D.ER 04:03
PROVIDERS: Family Medicine
DX: Z86.711 Personal history of pulmonary embolism (principal); I11.0 Hypertensive heart disease with heart failure; I50.9 Heart failure, unspecified; E11.9 Type 2 diabetes mellitus without complications; E87.5 Hyperkalemia; Z99.81 Dependence on supplemental oxygen

== ENCOUNTER 2019-03-08 18:07 | Emergency (ER) | payer MEDICARE ==
[~2019-03-08] VITALS: Ht 182.9 cm; Wt 88.6 kg
[~2019-03-08 18:07] MED LIST changes: +BUMEX2 MG PO
[2019-03-08 18:25] VITALS: Ht 182.9 cm; Wt 88.6 kg
[2019-03-08 18:52] LABS: BASOPHILS 0.2 % (0-2); EOSINOPHILS 1.9 % (0-7); HEMATOCRIT 41.8 % (42.0-54.0); HEMOGLOBIN 13.7 g/dL (13.5-17.5); IMMATURE GRANULOCYTES 0.2 % (0-5); LYMPHOCYTES 12.3 % (15-50); MCHC 32.8 g/dL (31.0-37.0); MCV 91.7 fL (80.0-100.0); MEAN PLATELET VOLUME 10.6 fL (7.4-10.4); MONOCYTES 11.2 % (2-11); NEUTROPHILS 74.2 % (40-80); PLATELET COUNT 168 10x3/uL (130-400); RBC 4.56 10x6/uL (4.20-6.10); WBC 5.9 10x3/uL (4.8-10.8)
[2019-03-08 19:10] LABS: APTT 47.9 SECONDS (22.8-39.4); INR 2.05 (0.85-1.17); PROTIME 22.8 SECONDS (11.6-15.0)
[2019-03-08 19:11] LABS: CALC OSMOLALITY 276 mosm/kg (275-300); CALCIUM 8.6 mg/dL (8.5-10.1); CARBON DIOXIDE 28.8 mmol/L (21.0-32.0); CHLORIDE - SERUM 103 mmol/L (98-107); GLUCOSE 92 mg/dL (74-106); POTASSIUM - SERUM 3.6 mmol/L (3.5-5.1); SODIUM 138 mmol/L (136-145); UREA NITROGEN 14 mg/dL (7-18); eGFR NON AFRICAN AMERICAN 90 mL/min (90-120)
[2019-03-08 19:27] LABS: ALBUMIN 3.8 g/dL (3.4-5.0); ALKALINE PHOSPHATASE 94 U/L (46-116); ALT (SGPT) 42 U/L (10-68); BILIRUBIN - TOTAL 1.11 mg/dL (0.2-1.3); CKMB 0.6 U/L (0.0-3.6); CREATINE KINASE 35 UL (21-232); MAGNESIUM - SERUM 2.1 mg/dL (1.8-2.4); PROTEIN - SERUM 7.1 g/dL (6.4-8.2); TROPONIN-I 0.021 ng/mL (0.000-0.060)
[2019-03-08 20:56] VITALS: BP 121/68
== END 2019-03-08 20:35 | disposition home or self-care (01) ==
LOC: D.ER 18:07
PROVIDERS: Emergency Medicine
DX: I49.9 Cardiac arrhythmia, unspecified (principal); I11.0 Hypertensive heart disease with heart failure; I50.812 Chronic right heart failure; Z99.81 Dependence on supplemental oxygen

== ENCOUNTER 2019-03-25 17:39 | Emergency (ER) | payer MEDICARE ==
[~2019-03-25] VITALS: Ht 182.9 cm; Wt 86.4 kg
[2019-03-25 17:46] VITALS: Ht 182.9 cm; Wt 86.4 kg
[2019-03-25] MEDS ORDERED: BUMEX2 MG PO (17:48)
[2019-03-25] MEDS ORDERED: REMODULIN (17:49)
[2019-03-25 18:30] LABS: BASOPHILS 0.2 % (0-2); EOSINOPHILS 1.4 % (0-7); HEMATOCRIT 40.5 % (42.0-54.0); HEMOGLOBIN 13.6 g/dL (13.5-17.5); LYMPHOCYTES 14.5 % (15-50); MCH 30.1 pg (26.0-34.0); MCHC 33.6 g/dL (31.0-37.0); MCV 89.6 fL (80.0-100.0); MEAN PLATELET VOLUME 10.3 fL (7.4-10.4); MONOCYTES 9.4 % (2-11); NEUTROPHILS 74.5 % (40-80); PLATELET COUNT 153 10x3/uL (130-400); RBC 4.52 10x6/uL (4.20-6.10); RDW 14.2 % (11.5-14.5); WBC 5.1 10x3/uL (4.8-10.8)
[2019-03-25 18:39] LABS: INR 1.33 (0.85-1.17); PROTIME 16.3 SECONDS (11.6-15.0)
[2019-03-25 18:40] LABS: APTT 42.2 SECONDS (22.8-39.4); CALC OSMOLALITY 269 mosm/kg (275-300); CALCIUM 8.5 mg/dL (8.5-10.1); CARBON DIOXIDE 26.3 mmol/L (21.0-32.0); CHLORIDE - SERUM 101 mmol/L (98-107); GLUCOSE 116 mg/dL (74-106); POTASSIUM - SERUM 3.3 mmol/L (3.5-5.1); SODIUM 134 mmol/L (136-145); UREA NITROGEN 16 mg/dL (7-18); eGFR NON AFRICAN AMERICAN 90 mL/min (90-120)
[2019-03-25 18:56] LABS: ALBUMIN 3.6 g/dL (3.4-5.0); ALKALINE PHOSPHATASE 85 U/L (30-120); ALT (SGPT) 39 U/L (10-68); BILIRUBIN - TOTAL 1.18 mg/dL (0.2-1.3); CKMB 0.8 U/L (0.0-3.6); CREATINE KINASE 36 UL (21-232); MAGNESIUM - SERUM 2.1 mg/dL (1.8-2.4); PRO BNP 2508 pg/mL (0-125); PROTEIN - SERUM 7.3 g/dL (6.4-8.2)
[2019-03-25 18:58] LABS: TROPONIN-I < 0.017 ng/mL (0.000-0.060)
[2019-03-25 21:47] VITALS: BP 111/63
== END 2019-03-25 21:30 | disposition home or self-care (01) ==
LOC: D.ER 17:39
PROVIDERS: Family Medicine
DX: I11.0 Hypertensive heart disease with heart failure (principal); I50.9 Heart failure, unspecified; Z99.81 Dependence on supplemental oxygen; I27.29 Other secondary pulmonary hypertension

== ENCOUNTER 2019-05-27 19:27 | Emergency (ER) | payer MEDICARE ==
[~2019-05-27] VITALS: Ht 182.9 cm; Wt 81.8 kg
[2019-05-27 19:36] VITALS: Ht 182.9 cm; Wt 81.8 kg
[2019-05-27 21:15] LABS: BASOPHILS 0.2 % (0-2); EOSINOPHILS 1.6 % (0-7); HEMATOCRIT 42.1 % (42.0-54.0); HEMOGLOBIN 13.4 g/dL (13.5-17.5); IMMATURE GRANULOCYTES 0.2 % (0-5); LYMPHOCYTES 13.2 % (15-50); MCH 29.6 pg (26.0-34.0); MCHC 31.8 g/dL (31.0-37.0); MCV 92.9 fL (80.0-100.0); MEAN PLATELET VOLUME 10.2 fL (7.4-10.4); MONOCYTES 8.9 % (2-11); NEUTROPHILS 75.9 % (40-80); PLATELET COUNT 163 10x3/uL (130-400); RBC 4.53 10x6/uL (4.20-6.10); RDW 14.9 % (11.5-14.5); WBC 4.9 10x3/uL (4.8-10.8)
[2019-05-27 21:27] LABS: CALC OSMOLALITY 274 mosm/kg (275-300); CALCIUM 8.6 mg/dL (8.5-10.1); CARBON DIOXIDE 27.9 mmol/L (21.0-32.0); CHLORIDE - SERUM 100 mmol/L (98-107); CREATININE - SERUM 1.1 mg/dL (0.6-1.3); GLUCOSE 93 mg/dL (74-106); POTASSIUM - SERUM 3.5 mmol/L (3.5-5.1); SODIUM 137 mmol/L (136-145); UREA NITROGEN 15 mg/dL (7-18); eGFR NON AFRICAN AMERICAN 80 mL/min (90-120)
[2019-05-27 21:47] LABS: ALBUMIN 3.9 g/dL (3.4-5.0); ALKALINE PHOSPHATASE 95 U/L (30-120); ALT (SGPT) 48 U/L (10-68); BILIRUBIN - TOTAL 1.18 mg/dL (0.2-1.3); PROTEIN - SERUM 7.8 g/dL (6.4-8.2)
[2019-05-27 22:47] VITALS: BP 118/60
[2019-05-27 22:56] LABS: BILIRUBIN NEGATIVE (NEGATIVE); GLUCOSE NEGATIVE (NEGATIVE); KETONE NEGATIVE (NEGATIVE); NITRITE NEGATIVE (NEGATIVE); UROBILINOGEN NORMAL (NORMAL)
== END 2019-05-27 22:47 | disposition home or self-care (01) ==
LOC: D.ER 19:27
PROVIDERS: Family Medicine
DX: R53.1 Weakness (principal); I10 Essential (primary) hypertension; Z99.81 Dependence on supplemental oxygen; K21.9 Gastro-esophageal reflux disease without esophagitis; R05 Cough; R68.89 Other general symptoms and signs

== ENCOUNTER 2019-07-26 22:58 | Inpatient (IN) | payer MEDICARE ==
[~2019-07-26] VITALS: Ht 182.9 cm; Wt 81.6 kg
[2019-07-26 23:21] LABS: BASOPHILS 0.2 % (0-2); HEMATOCRIT 37.4 % (42.0-54.0); HEMOGLOBIN 12.4 g/dL (13.5-17.5); LYMPHOCYTES 15.4 % (15-50); MCH 30.3 pg (26.0-34.0); MCHC 33.2 g/dL (31.0-37.0); MCV 91.4 fL (80.0-100.0); MEAN PLATELET VOLUME 9.3 fL (7.4-10.4); MONOCYTES 8.2 % (2-11); NEUTROPHILS 73.2 % (40-80); PLATELET COUNT 147 10x3/uL (130-400); RBC 4.09 10x6/uL (4.20-6.10); WBC 5.3 10x3/uL (4.8-10.8)
[2019-07-26 23:32] LABS: CALC OSMOLALITY 270 mosm/kg (275-300); CALCIUM 8.3 mg/dL (8.5-10.1); CARBON DIOXIDE 29.9 mmol/L (21.0-32.0); CHLORIDE - SERUM 101 mmol/L (98-107); CREATININE - SERUM 1.3 mg/dL (0.6-1.3); GLUCOSE 97 mg/dL (74-106); POTASSIUM - SERUM 3.7 mmol/L (3.5-5.1); SODIUM 135 mmol/L (136-145); UREA NITROGEN 16 mg/dL (7-18); eGFR NON AFRICAN AMERICAN 66 mL/min (90-120)
--- NOTE | 2019-07-26 23:33 | NUR ---
PATIENT IN WITH C/O RAPID HEART RATE THAT STARTED THIS EVENING ON AND OFF, SOME SOB. HAS EDEMA +1 TO BLE, STATES THIS STARTED ABOUT THREE DAYS AGO. PATIENT HAS A PUMP HE RECEIVES INFUSIONS OF REMODULIN TO THE LEFT FLANK AREA, WAS ON THE RIGHT SIDE, WHERE THERE IS NOW REDNESS AND SOME SWELLING.
[2019-07-26 23:45] LABS: ALBUMIN 3.5 g/dL (3.4-5.0); ALKALINE PHOSPHATASE 120 U/L (30-120); ALT (SGPT) 32 U/L (10-68); BILIRUBIN - TOTAL 0.84 mg/dL (0.2-1.3); CREATINE KINASE 41 UL (21-232); MAGNESIUM - SERUM 2.2 mg/dL (1.8-2.4); PRO BNP 3664 pg/mL (0-125); PROTEIN - SERUM 7.3 g/dL (6.4-8.2)
[2019-07-26 23:46] LABS: TROPONIN-I < 0.017 ng/mL (0.000-0.060)
[2019-07-26 23:48] VITALS: BP 134/76
[2019-07-27 01:50] VITALS: BP 130/67; BMI 24.5
--- NOTE | 2019-07-27 02:00 | NUR ---
RECEIVED REPORT FROM ER NURSE. ARRIVED TO FLOOR ON STRETCHER. ALERT AND ORIENTED X4. UP AD ERIK TO B/R. IV TO LT AC SL. REQUESTED O2 TO BE INCREASED TO 6 LITERS WHEN RECEIVED IN THE BED. REMAINS ON 6 LITERS PER N/C. DENIES ANY OTHER NEEDS AT THIS TIME.
[2019-07-27 04:30] VITALS: BP 110/58
--- NOTE | 2019-07-27 07:20 | NUR ---
RECIEVE REPORT. RESTING IN BED WITH EYES CLOSED. NO SIGNS OF DISTRESS. CONTINUE PLAN OF CARE AND SAFETY PRECAUTIONS.
[2019-07-27 10:41] VITALS: BP 113/61
[2019-07-27 13:14] VITALS: BP 119/67
[2019-07-27 13:25] VITALS: Ht 182.9 cm; Wt 81.6 kg
--- NOTE | 2019-07-27 17:13 | NUR ---
ALERT AND ORIENTED X4. SITTING UP IN BED. DISCHARGE INSTRUCTIONS GIVEN VERBALLY AND WRITTEN. DISCHARGE PAPERS SIGNED ON CHART. DC LT AC IV TIP INTACT. WAITING FOR RIDE TO ARRIVE. CONTINUE PLAN OF CARE AND SAFETY PRECAUTIONS.
--- NOTE | 2019-07-28 13:08 | CN ---
PATIENT NAME:TOBY MELENDEZ MEDICAL RECORD: [id number] : 84 LOCATION:D.Ana D.2111 ADMIT DATE: 07/26/19 ACCOUNT: [id number] CONSULTING PHYSICIAN: ANNALISE SAMUEL MD REFERRING PHYSICIAN: DEMETRIO COMER MD DATE OF CONSULTATION: 07/27/2019 HISTORY OF PRESENT ILLNESS: A 39-year-old gentleman with a history of pulmonary hypertension, somewhat longstanding, followed in [place], has had some adjustments to his medications lately had onset of tachycardia, SVT type symptomatology. He has been noticing decreased breathless presented to the ER, was improved by then and was found to be in normal sinus rhythm. He is unsure if this is regular or irregular, cannot totally exclude episodes of atrial fib versus other SVT; however, is on DOAC chronically. We were asked to see him concerning cardiovascular status. PAST MEDICAL HISTORY: 1. History of pulmonary hypertension. 2. Pulmonary embolus in the past. ALLERGIES: None known. MEDICATIONS: Chronically include Xarelto 20 mg p.o. daily, metoprolol 50 mg p.o. b.i.d., Tadalafil 40 mg p.o. daily, Klonopin 1 mg p.o. b.i.d., potassium chloride, Bumex 2 mg b.i.d., Letairis 10 mg p.o. every day, Remodulin subQ. SOCIAL HISTORY: He is a nonsmoker. Does try to exercise for pulmonary rehabilitation. No illicit drug use by his report. REVIEW OF SYSTEMS: The patient reports easy bruising but reports no swollen glands. The patient reports no fever, no night sweats, no significant weight gain, no significant weight loss. No significant exercise tolerance. The patient reports no dry eyes, no irritation, no vision change. Patient reports no difficulty hearing and no ear pain. Patient reports no frequent nose bleeds or nose and sinus problems. Patient reports on arm pain on exertion. No shortness of breath while lying down. No history of heart murmur. Patient reports no cough, no wheezing or coughing up blood. Patient reports no abdominal pain, no vomiting. Normal appetite. No diarrhea and not vomiting blood. No nausea and no constipation. Patient reports no incontinence. No difficulty urinating. No hematuria. No increased frequency. Patient reports no muscle aches. No weakness, no arthralgias, no back pain. No swelling of the extremities. Patient reports no abnormal mole, no jaundice, no rashes. Reports no loss of consciousness. No weakness and no numbness. No seizures, dizziness, or headaches. The patient reports no depression, no sleep disturbance, feeling safe in a relationship and no alcohol abuse. Patient reports on fatigue. Reports no runny nose or sinus pressure. No itching, no hives, and no frequent sneezing. PHYSICAL EXAMINATION: GENERAL: Young gentleman in no acute distress, appears stated age. VITAL SIGNS: Blood pressure 110/58, pulse 90 and regular. HEENT: Normocephalic, atraumatic. NECK: No JVD or bruit. HEART: Regular, loud P2, II/ systolic ejection murmur heard best primarily tricuspid area. CONSULT REPORT [id number] TOBY MELENDEZ LUNGS: Fairly good excursion. ABDOMEN: Soft, nontender. EXTREMITIES: Trace edema, 2+ pulses. IMPRESSION: Arrhythmia. At this point in time, discussed the options, certainly cannot exclude atrial fibrillation; however, given his underlying beta blockade and DOAC therapy and improvement, would not make any change at this point. No contraindication at discharge from my standpoint. Thank you for the consultation. TRANSINT:[id number] Voice Confirmation ID: [id number] DOCUMENT ID: [id number] ANNALISE SAMUEL MD at 1308 CC: [id number] DICTATION DATE: 07/27/19 0836 METAL TEMPLATE MAKER: 07/27/19 1847 DIS IN 07/27/[address] [facility] [address] [id number]
--- NOTE | 2019-07-28 13:08 | EC ---
PATIENT:TOBY MELENDEZ DATE OF SERVICE: 07/26/19 SEX: M MEDICAL RECORD: [id number] DATE OF : [birth year] LOCATION:D.M2 D.211 AGE OF PATIENT: 39 ADMISSION DATE: 07/26/19 REFERRING PHYSICIAN: INTERPRETING PHYSICIAN: ANNALISE SAMUEL MD ECHOCARDIOGRAM REPORT ECHO CHARGES 4 ECHO COMPLETE Date: 07/27/19 CLINICAL DIAGNOSIS: PULMONARY HTN/CHF ECHOCARDIOGRAPHIC MEASUREMENTS (adult normal given) AC root (d.<3.7cm) 3.1 cm LV Septum d (<1.2 cm> 1.6 cm Valve Excursion 2.3 cm LV Septum (systole) 2.4 cm Left Atria (s.<4.0cm> 4.8 cm LVPW d(<1.2cm) 1.1 cm RV (d.<2.3cm) 4.4 cm LVPW (sytole) 2.4 cm LV diastole(<5.6CM) 5.0 cm MV E-F(>70mm/sec) cm LV systole 1.8 cm LVOT Diameter 2.2 cm MV exc.(>10mm) cm Est.ejection fraction (50-75%) % DOPPLER: LVIT cm/sec A 58.0 cm/sec E 93.0 cm/sec LA cm/sec RVSP 144.0mmHg LVOT 152 cm/sec AOP1/2T m/s Asc. Ao 203 cm/sec RVOT 68.0 cm/sec RA cm/sec PA 105 cm/sec AV Gradient Peak 17.0 mmHg AV Mean 7.7 mmHg AV Area 2.9 cm MV Gradient Peak 6.1 mmHg MV Mean 2.3 mmHg MV Area cm COMMENTS: Senior Fund Accountant: 1 ALEXANDER HARRISOE Fermenter: 3 Dr. Lyons TAPE# PACS Pericardial Effusion Y DATE OF SERVICE: Adequate 2D, color flow imaging, spectral Doppler, and M-Mode. LVH is present. LV internal dimensions are normal. There is paradoxical septal motion consistent with RV pressure and volume overload. Overall, LV function finally lower limits of normal at 50%. Aortic valve is tricuspid. No evidence of stenosis by Doppler interrogation. Left atrium is dilated at 4.8 cm. Mitral valve shows no prolapse. Trace MR. Right-sided chambers are obviously dilated. Severe TR is noted. RV systolic pressures were elevated, estimated greater ECHOCARDIOGRAM REPORT [id number] TOBY MELENDEZ than 244 mmHg via the continuity equation. Incidental note is made is made of small pericardial effusion of no hemodynamic significance. TRANSINT:[id number] Voice Confirmation ID: [id number] DOCUMENT ID: [id number] ANNALISE SAMUEL MD at 1308 CC: [id number] DICTATION DATE: 07/27/19 1136 FUR TAILOR: 07/27/19 1357 DIS IN 07/27/19 [id number] [place] [address]
== END 2019-07-27 18:22 | disposition home or self-care (01) | DRG 291 ==
LOC: D.ER 22:58 → D.M2 23:46
PROVIDERS: Family Medicine; ADMIT Emergency Medicine; ATTEND Emergency Medicine
DX: I11.0 Hypertensive heart disease with heart failure (principal); J96.21 Acute and chronic respiratory failure with hypoxia; E87.1 Hypo-osmolality and hyponatremia; I47.1 Supraventricular tachycardia; I50.33 Acute on chronic diastolic (congestive) heart failure; I27.20 Pulmonary hypertension, unspecified; K21.9 Gastro-esophageal reflux disease without esophagitis; D64.9 Anemia, unspecified; I48.91 Unspecified atrial fibrillation; F41.8 Other specified anxiety disorders; Z87.891 Personal history of nicotine dependence

== ENCOUNTER 2019-08-16 01:23 | Emergency (ER) | payer MEDICARE ==
[~2019-08-16] VITALS: Ht 182.9 cm; Wt 90.9 kg
[2019-08-16 01:30] VITALS: Ht 182.9 cm; Wt 90.9 kg
[2019-08-16] MEDS ORDERED: ORENITRAM (01:38)
[2019-08-16 01:45] LABS: BASOPHILS 0.2 % (0-2); EOSINOPHILS 2.8 % (0-7); HEMATOCRIT 40.4 % (42.0-54.0); HEMOGLOBIN 13.3 g/dL (13.5-17.5); IMMATURE GRANULOCYTES 0.2 % (0-5); LYMPHOCYTES 18.1 % (15-50); MCH 30.5 pg (26.0-34.0); MCHC 32.9 g/dL (31.0-37.0); MCV 92.7 fL (80.0-100.0); MEAN PLATELET VOLUME 11.6 fL (7.4-10.4); MONOCYTES 9.3 % (2-11); NEUTROPHILS 69.4 % (40-80); RBC 4.36 10x6/uL (4.20-6.10); RDW 15.5 % (11.5-14.5); WBC 5.6 10x3/uL (4.8-10.8)
[2019-08-16 01:46] LABS: PLATELET COUNT 192 10x3/uL (130-400)
[2019-08-16 01:55] LABS: APTT 52.4 SECONDS (22.8-39.4); INR 2.61 (0.85-1.17); PROTIME 27.5 SECONDS (11.6-15.0)
[2019-08-16 01:56] LABS: D-DIMER-QUANTITATIVE 0.65 ug/mLFEU (0.20-0.54)
[2019-08-16 01:58] LABS: CALC OSMOLALITY 278 mosm/kg (275-300); CALCIUM 8.4 mg/dL (8.5-10.1); CARBON DIOXIDE 29.7 mmol/L (21.0-32.0); CHLORIDE - SERUM 102 mmol/L (98-107); CREATININE - SERUM 1.1 mg/dL (0.6-1.3); GLUCOSE 93 mg/dL (74-106); POTASSIUM - SERUM 4.5 mmol/L (3.5-5.1); SODIUM 138 mmol/L (136-145); UREA NITROGEN 21 mg/dL (7-18); eGFR NON AFRICAN AMERICAN 80 mL/min (90-120)
[2019-08-16 02:12] LABS: ALBUMIN 3.6 g/dL (3.4-5.0); ALKALINE PHOSPHATASE 111 U/L (30-120); ALT (SGPT) 34 U/L (10-68); BILIRUBIN - TOTAL 0.78 mg/dL (0.2-1.3); CKMB 1.3 U/L (0.0-3.6); CREATINE KINASE 45 UL (21-232); MAGNESIUM - SERUM 2.4 mg/dL (1.8-2.4); PROTEIN - SERUM 7.3 g/dL (6.4-8.2); TROPONIN-I < 0.017 ng/mL (0.000-0.060)
[2019-08-16 05:12] VITALS: BP 136/78
== END 2019-08-16 05:13 | disposition home or self-care (01) ==
LOC: D.ER 01:23
PROVIDERS: Surgery
DX: I27.21 Secondary pulmonary arterial hypertension (principal); J96.10 Chronic respiratory failure, unspecified whether with hypoxia or hypercapnia; R23.0 Cyanosis; I10 Essential (primary) hypertension; Z99.81 Dependence on supplemental oxygen; R07.9 Chest pain, unspecified; R00.2 Palpitations

== ENCOUNTER 2019-09-12 01:43 | Emergency (ER) | payer MEDICARE ==
[~2019-09-12] VITALS: Ht 182.9 cm; Wt 81.6 kg
[~2019-09-12 01:43] MED LIST changes: +ORENITRAM
[2019-09-12 01:47] VITALS: Ht 182.9 cm; Wt 81.6 kg
[2019-09-12 02:07] LABS: BASOPHILS 0.2 % (0-2); HEMATOCRIT 40.6 % (42.0-54.0); HEMOGLOBIN 13.1 g/dL (13.5-17.5); LYMPHOCYTES 17.1 % (15-50); MCHC 32.3 g/dL (31.0-37.0); MCV 92.9 fL (80.0-100.0); MEAN PLATELET VOLUME 10.3 fL (7.4-10.4); MONOCYTES 10.2 % (2-11); NEUTROPHILS 70.5 % (40-80); PLATELET COUNT 193 10x3/uL (130-400); RBC 4.37 10x6/uL (4.20-6.10); RDW 15.2 % (11.5-14.5); WBC 5.4 10x3/uL (4.8-10.8)
[2019-09-12 02:24] LABS: D-DIMER-QUANTITATIVE 0.97 ug/mLFEU (0.20-0.54)
[2019-09-12 02:36] LABS: APTT 51.4 SECONDS (22.8-39.4); INR 2.32 (0.85-1.17); PROTIME 25.2 SECONDS (11.6-15.0)
[2019-09-12 02:49] LABS: CALC OSMOLALITY 275 mosm/kg (275-300); CALCIUM 8.4 mg/dL (8.5-10.1); CARBON DIOXIDE 28.5 mmol/L (21.0-32.0); CHLORIDE - SERUM 103 mmol/L (98-107); CREATININE - SERUM 1.3 mg/dL (0.6-1.3); GLUCOSE 134 mg/dL (74-106); POTASSIUM - SERUM 4.1 mmol/L (3.5-5.1); SODIUM 136 mmol/L (136-145); UREA NITROGEN 18 mg/dL (7-18); eGFR NON AFRICAN AMERICAN 66 mL/min (90-120)
[2019-09-12 03:01] LABS: ALBUMIN 3.8 g/dL (3.4-5.0); ALKALINE PHOSPHATASE 114 U/L (30-120); ALT (SGPT) 23 U/L (10-68); BILIRUBIN - TOTAL 0.91 mg/dL (0.2-1.3); LIPASE 82 U/L (73-393); MAGNESIUM - SERUM 2.4 mg/dL (1.8-2.4); PRO BNP 3066 pg/mL (0-125); PROTEIN - SERUM 7.6 g/dL (6.4-8.2)
[2019-09-12 03:02] LABS: TROPONIN-I < 0.017 ng/mL (0.000-0.060)
[2019-09-12 04:35] VITALS: BP 111/63
== END 2019-09-12 03:44 | disposition left against medical advice (07) ==
LOC: D.ER 01:43
PROVIDERS: Family Medicine
DX: R07.9 Chest pain, unspecified (principal); R06.02 Shortness of breath; Z99.81 Dependence on supplemental oxygen; K21.9 Gastro-esophageal reflux disease without esophagitis; I11.0 Hypertensive heart disease with heart failure; I50.9 Heart failure, unspecified; I42.9 Cardiomyopathy, unspecified; Z53.29 Procedure and treatment not carried out because of patient's decision for other reasons

== ENCOUNTER 2019-10-08 05:39 | Emergency (ER) | payer MEDICARE ==
[~2019-10-08] VITALS: Ht 182.9 cm; Wt 81.8 kg
[2019-10-08 05:43] VITALS: Ht 182.9 cm; Wt 81.8 kg
[2019-10-08] MEDS ORDERED: AUGMENTIN 875-11 TAB PO (06:48)
[2019-10-08] MEDS ORDERED: HYDROCODON-ACE1 EAC7 PO (06:48)
[2019-10-08 06:59] LABS: BASOPHILS 0.2 % (0-2); EOSINOPHILS 2.3 % (0-7); HEMATOCRIT 38.3 % (42.0-54.0); HEMOGLOBIN 12.5 g/dL (13.5-17.5); LYMPHOCYTES 18.2 % (15-50); MCH 30.1 pg (26.0-34.0); MCHC 32.6 g/dL (31.0-37.0); MCV 92.3 fL (80.0-100.0); MEAN PLATELET VOLUME 10.7 fL (7.4-10.4); MONOCYTES 10.5 % (2-11); NEUTROPHILS 68.8 % (40-80); PLATELET COUNT 157 10x3/uL (130-400); RBC 4.15 10x6/uL (4.20-6.10); RDW 15.9 % (11.5-14.5); WBC 5.7 10x3/uL (4.8-10.8)
[2019-10-08 07:01] LABS: CALC OSMOLALITY 273 mosm/kg (275-300); CALCIUM 8.5 mg/dL (8.5-10.1); CARBON DIOXIDE 25.4 mmol/L (21.0-32.0); CHLORIDE - SERUM 103 mmol/L (98-107); CREATININE - SERUM 1.1 mg/dL (0.6-1.3); GLUCOSE 91 mg/dL (74-106); SODIUM 136 mmol/L (136-145); UREA NITROGEN 19 mg/dL (7-18); eGFR NON AFRICAN AMERICAN 80 mL/min (90-120)
[2019-10-08 07:07] LABS: ALBUMIN 3.9 g/dL (3.4-5.0); ALKALINE PHOSPHATASE 95 U/L (30-120); ALT (SGPT) 29 U/L (10-68); BILIRUBIN - TOTAL 1.02 mg/dL (0.2-1.3); PROTEIN - SERUM 7.4 g/dL (6.4-8.2)
[2019-10-08 07:23] LABS: APTT 47.8 SECONDS (22.8-39.4); INR 2.51 (0.85-1.17); PROTIME 26.7 SECONDS (11.6-15.0)
[2019-10-08 08:44] VITALS: BP 103/56
== END 2019-10-08 08:44 | disposition home or self-care (01) ==
LOC: D.ER 05:39
PROVIDERS: Emergency Medicine
DX: R04.0 Epistaxis (principal); I10 Essential (primary) hypertension; K21.9 Gastro-esophageal reflux disease without esophagitis; Z99.81 Dependence on supplemental oxygen

== ENCOUNTER 2019-10-10 15:51 | Emergency (ER) | payer MEDICARE ==
[~2019-10-10 15:51] MED LIST changes: +AUGMENTIN 875-11 TAB PO
[2019-10-10 16:08] VITALS: Ht 182.9 cm
[2019-10-10 18:27] VITALS: BP 140/64
== END 2019-10-10 18:28 | disposition home or self-care (01) ==
LOC: D.ER 15:51
DX: R04.0 Epistaxis (principal); I10 Essential (primary) hypertension; K21.9 Gastro-esophageal reflux disease without esophagitis

== ENCOUNTER 2020-05-06 16:35 | Inpatient (IN) | payer MEDICARE ==
[~2020-05-06] VITALS: Ht 182.9 cm; Wt 81.6 kg
[~2020-05-06 16:35] MED LIST changes: +PROTONIX20 MG PO
--- NOTE | 2020-05-06 16:57 | NUR ---
PATIENT ASSISTED TO POSITION OF COMFORT, GIVEN BLANKET AND WATER. PATIENT EDUCATED ON CARE PLAN AND PURPOSE. 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
[2020-05-06 17:18] LABS: ANION GAP 10.4 mmol/L (8-16); BASOPHILS 0.5 % (0-2); CALCIUM 8.6 mg/dL (8.5-10.1); CARBON DIOXIDE 29.1 mmol/L (21.0-32.0); CREATININE - SERUM 1.4 mg/dL (0.6-1.3); EOSINOPHILS 2.1 % (0-7); HEMATOCRIT 36.5 % (42.0-54.0); HEMOGLOBIN 11.9 g/dL (13.5-17.5); IMMATURE GRANULOCYTES 0.2 % (0-5); LYMPHOCYTE ABS# 0.91 10x3/uL (1.32-3.57); LYMPHOCYTES 21.5 % (15-50); MCH 27.9 pg (26.0-34.0); MCHC 32.6 g/dL (31.0-37.0); MCV 85.5 fL (80.0-100.0); MEAN PLATELET VOLUME 10.4 fL (7.4-10.4); MONOCYTES 10.6 % (2-11); NEUTROPHIL ABS# 2.75 10x3/uL (1.78-5.38); NEUTROPHILS 65.1 % (40-80); PLATELET COUNT 170 10x3/uL (130-400); POTASSIUM - SERUM 3.5 mmol/L (3.5-5.1); RBC 4.27 10x6/uL (4.20-6.10); RDW 17.7 % (11.5-14.5); WBC 4.2 10x3/uL (4.8-10.8)
[2020-05-06 17:24] LABS: BILIRUBIN - TOTAL 1.21 mg/dL (0.2-1.3); PROTEIN - SERUM 7.6 g/dL (6.4-8.2)
[2020-05-06] MEDS ORDERED: ALDACTONE50 MG PO (17:32)
[2020-05-06] MEDS ORDERED: PROAIR HFA8.5 G1 INH (17:33)
[2020-05-06] MEDS ORDERED: TORSEMIDE20 MG PO (17:33)
[2020-05-06] MEDS ORDERED: ATROVENT 0.02%2.5 ML UPD (17:33)
[2020-05-06] MEDS ORDERED: KLOR-CON M2020 MEQ PO (17:34)
--- NOTE | 2020-05-06 17:34 | NUR ---
[facility] CONTACTED AT [phone], HOME MEDICATION RECONCILIATION COMPLETE.
--- NOTE | 2020-05-06 18:38 | NUR ---
REPORT CALLED TO KARLA ON MED II
--- NOTE | 2020-05-06 19:00 | NUR ---
PT ARRIVED TO UNIT FROM ER AT 1845. ALERT/ORIENTED. SETTLED INTO ROOM.
--- NOTE | 2020-05-06 20:00 | NUR ---
ADMISSION ASSESSMENT AND HISTORY COMPLETED. HOME MEDS REVIEWED. PT WITH O2 @ 3L/NC, STATES HIS O2 SAT VARIES BETWEEN 90-93% MOST TIMES. CURRENTLY 88%.PT ASKED FOR O2 TO BE INCREASED TO 4L/NC AND O2 SAT CAME UP TO 91%, WHICH PATIENT STATES IS GOOD FOR HIM. VERY KNOWLEDGABLE ABOUT HIS DISEASE PROCESS AND HIS MEDICATIONS. PLAN OF CARE REVIEWED.
[2020-05-06 20:46] VITALS: BP 112/64
--- NOTE | 2020-05-06 23:30 | NUR ---
PT SEEN BY [facility] APN.
[2020-05-06 23:55] LABS: APTT 37.6 SECONDS (22.8-39.4); INR 1.4 (0.85-1.17); PROTIME 15.9 SECONDS (11.6-15.0)
[2020-05-06 23:59] LABS: D-DIMER-QUANTITATIVE 2.85 ug/mLFEU (0.20-0.54)
[2020-05-07] VITALS (7 sets, daily range): BP systolic 88–106; BP diastolic 40–67; Ht 182.9 cm; Wt 81.6 kg
[2020-05-07 00:58] LABS: CKMB 0.8 U/L (0.0-3.6); CREATINE KINASE 44 UL (21-232); MAGNESIUM - SERUM 2.4 mg/dL (1.8-2.4); PRO BNP 2542 pg/mL (0-125)
[2020-05-07 00:59] LABS: TROPONIN-I < 0.017 ng/mL (0.000-0.060)
[2020-05-07 03:46] LABS: BASOPHILS 0.2 % (0-2); EOSINOPHILS 2.5 % (0-7); HEMATOCRIT 34.1 % (42.0-54.0); HEMOGLOBIN 10.9 g/dL (13.5-17.5); IMMATURE GRANULOCYTES 0.2 % (0-5); LYMPHOCYTE ABS# 0.85 10x3/uL (1.32-3.57); LYMPHOCYTES 20.9 % (15-50); MCH 27.2 pg (26.0-34.0); MEAN PLATELET VOLUME 10.4 fL (7.4-10.4); MONOCYTES 13.5 % (2-11); NEUTROPHIL ABS# 2.54 10x3/uL (1.78-5.38); NEUTROPHILS 62.7 % (40-80); PLATELET COUNT 163 10x3/uL (130-400); RBC 4.01 10x6/uL (4.20-6.10); RDW 17.6 % (11.5-14.5); WBC 4.1 10x3/uL (4.8-10.8)
[2020-05-07 04:05] LABS: ALBUMIN 3.4 g/dL (3.4-5.0); ANION GAP 10.9 mmol/L (8-16); BILIRUBIN - TOTAL 0.94 mg/dL (0.2-1.3); CALCIUM 7.7 mg/dL (8.5-10.1); CARBON DIOXIDE 26.9 mmol/L (21.0-32.0); CREATININE - SERUM 1.3 mg/dL (0.6-1.3); MAGNESIUM - SERUM 2.2 mg/dL (1.8-2.4); POTASSIUM - SERUM 3.8 mmol/L (3.5-5.1); PROTEIN - SERUM 6.7 g/dL (6.4-8.2)
[2020-05-07 13:43] LABS: BILIRUBIN NEGATIVE (NEGATIVE); KETONE NEGATIVE (NEGATIVE); NITRITE NEGATIVE (NEGATIVE); UROBILINOGEN NORMAL mg/dL (< 2)
[2020-05-07 13:45] LABS: PROTEIN - BODY FLUID 3.8 G/DL
[2020-05-07] MEDS ORDERED: TOPROL XL50 MG PO (21:00)
--- NOTE | 2020-05-07 21:08 | NUR ---
PT REPORTS THAT HE IS NOT RECIEVING HIS CORRECT BP MEDICATION. VERIFIED WITH HIS PHARMACY AND CORRECTED METOPROLOL AT THIS TIME. PT IS ALSO FEBRILE. MEDICATED WITH TYLENOL FOR 100.4. PT IS UPSET BECAUSE HE WANTED TO GO HOME AFTER HIS THORACENTESIS TODAY.
[2020-05-08 01:00] VITALS: BP 109/66
[2020-05-08 04:34] VITALS: BP 106/64
--- NOTE | 2020-05-08 06:36 | NUR ---
PT HAS RESTED THIS SHIFT. TEMP AT BEGINNING OF SHIFT. TYLENOL GIVEN. PT IS VERY RELUCTANT TO TAKE ANY EXTRA MEDS, BUT DID TAKE THE TYLENOL. HE RESTED THROUGH THE NIGHT. SR PER TELEMETRY. 02 @ 5L/NC. DRESSING TO RIGHT SIDE WHERE HE HAD BEDSIDE THORACENTESIS DONE BY DR MOLINA YESTERDAY. PT SAYING HE WANTS TO GO HOME AND THAT THE DOCTOR TOLD HIM HE COULD. THERE ARE NO WRITTEN ORDERS FOR HIM TO LEAVE AT THIS TIME. CALL LIGHT IN REACH. WILL REPORT TO ONCOMING SHIFT.
[2020-05-08 06:47] LABS: ALBUMIN 3.3 g/dL (3.4-5.0); ANION GAP 10.9 mmol/L (8-16); CARBON DIOXIDE 25.4 mmol/L (21.0-32.0); CREATININE - SERUM 1.2 mg/dL (0.6-1.3); MAGNESIUM - SERUM 2.2 mg/dL (1.8-2.4); POTASSIUM - SERUM 3.3 mmol/L (3.5-5.1); PROTEIN - SERUM 6.5 g/dL (6.4-8.2)
--- NOTE | 2020-05-08 07:20 | NUR ---
RECIEVE REPORT. RESTING IN BED WITH EYES CLOSED. NO SIGNS OF DISTRESS. SINUS RYTHM 73 BBB ON TELEMETRY. CONTINUE PLAN OF CARE AND SAFETY PRECAUTIONS.
[2020-05-08 08:51] VITALS: BP 114/51
[2020-05-08 09:14] LABS: BASOPHILS 0.2 % (0-2); EOSINOPHILS 2.4 % (0-7); HEMATOCRIT 33.4 % (42.0-54.0); IMMATURE GRANULOCYTES 0.2 % (0-5); LYMPHOCYTE ABS# 0.91 10x3/uL (1.32-3.57); LYMPHOCYTES 18.3 % (15-50); MCH 27.7 pg (26.0-34.0); MCHC 32.9 g/dL (31.0-37.0); MCV 84.1 fL (80.0-100.0); MEAN PLATELET VOLUME 10.1 fL (7.4-10.4); MONOCYTES 13.5 % (2-11); NEUTROPHIL ABS# 3.25 10x3/uL (1.78-5.38); NEUTROPHILS 65.4 % (40-80); PLATELET COUNT 160 10x3/uL (130-400); RBC 3.97 10x6/uL (4.20-6.10); RDW 17.6 % (11.5-14.5)
--- NOTE | 2020-05-08 10:50 | MORECARE ---
CASE MANAGEMENT DISCHARGE SUMMARY PATIENT: TOBY MELENDEZ UNIT: [id number] ADM DATE: 05/06/20 AGE: 39 : 82 SEX: M ROOM/BED: D.2110 AUTHOR: ANTONIETTA BLOUNT PHYSICIAN: REFERRING PHYSICIAN: FAITH MENDOZA MD DATE OF SERVICE: 05/08/20 Discharge Plan Patient Name: TOBY MELENDEZ Facility: [facility]:[place] : 1980 Planned Disposition: Home Anticipated Discharge Date: 05/08/20 Discharge Date: Expected LOS: 2 Initial Reviewer: [email or web address] Initial Review Date: 05/06/2020 Generated: 05/08/20 11:49 am Comments DCP- Discharge Planning Updated by RASHAD: Shane Lugo on 05/08/20 8:[address] CM met with patient to complete DC plan and to evaluate needs. Patient lives with family independently. At discharge, the patient plans to return home and feels this is a safe discharge. CM discussed availability of home health, rehab services, and medical equipment. Patient declined HHS, SNF, IPR, and DME. Patient [facility]. Patient voiced no other needs at this time and is satisfied with DC plan. Transportation provider at discharge will be with his step father. DC IMM delivered, explained, signed by the patient, and placed in chart. Signed form also left with the patient. CM will continue to follow and will assist as needed with dc plans/needs. DCPIA - Discharge Planning Initial Assessment Updated by RASHAD: Shane Lugo on 05/08/20 10:46 am * Is the patient Alert and Oriented? Yes * How many steps to enter\exit or inside your home? RAMP * PCP GRIFFITH * Pharmacy [facility] [address] * Preadmission Environment Home with Family * ADLs Independent * Equipment Oxygen Walker Wheelchair * Other Equipment N/A * Community resources currently utilized Other * Please name any agencies selected above. [facility] * Additional services required to return to the preadmission environment? No * Can the patient safely return to the preadmission environment? Yes * Has this patient been hospitalized within the prior 30 days at any hospital? No Coverage Notice Reviewer: RASHAD Lugo Notice Issued Date-Time: 05/08/2020 9:20 Notice Type: IM Discharge Notice Notice Delivered To: Patient Relationship to Patient: Self Presales Engineer Name: Delivery Method: HAND - Hand Delivered Bushra Days: Prior Verbal Notification: Recipient Understood Notice: Yes Recipient Signature: Yes Med Rec Note Co-signed by Attending: Coverage Notice Comment: DC IMM delivered, explained, signed by the patient, and placed in chart. Patient Name: TOBY MELENDEZ Page [phone] at 1050 All edits/amendments must be made on the electronic document DICTATION DATE: 05/08/20 1049 COMMERCIAL TECHNICIAN: TEODORO 05/08/20 1049 RPT#: [id number] DC DATE: STATUS: ADM IN [facility] [address] [place] [address] END OF REPORT
--- NOTE | 2020-05-08 13:24 | NUR ---
ALERT AND ORIENTED X4. SITTING UP IN BED. DISCHARGE INSTRUCTIONS GIVEN VERBALLY AND WRITTEN. DISCHARGE PAPERS SIGNED ON CHART. DC RT HAND IV TIP INTACT. ESCORT TO RIDE VIA WHEELCHAIR. REMAINS FREE FORM INJURY.
--- NOTE | 2020-05-09 08:29 | MORECARE ---
CASE MANAGEMENT DISCHARGE SUMMARY PATIENT: TOBY MELENDEZ UNIT: [id number] ADM DATE: 05/06/20 AGE: 39 : 82 SEX: M ROOM/BED: D.2110 AUTHOR: ANTONIETTA LBOUNT PHYSICIAN: REFERRING PHYSICIAN: FAITH MENDOZA MD DATE OF SERVICE: 05/09/20 Discharge Plan Patient Name: TOBY MELENDEZ Facility: [facility]:[place] : 1980 Planned Disposition: Home Anticipated Discharge Date: 05/08/20 Discharge Date: 05/08/2020 Expected LOS: 2 Initial Reviewer: RASHAD Initial Review Date: 05/06/2020 Generated: 05/09/20 9:29 am Comments DCP- Discharge Planning Updated by RASHAD: Shane Lugo on 05/08/20 8:[address] CM met with patient to complete DC plan and to evaluate needs. Patient lives with family independently. At discharge, the patient plans to return home and feels this is a safe discharge. CM discussed availability of home health, rehab services, and medical equipment. Patient declined HHS, SNF, IPR, and DME. Patient stated that he has home oxygen through [facility]. Patient voiced no other needs at this time and is satisfied with DC plan. Transportation provider at discharge will be with his step father. DC IMM delivered, explained, signed by the patient, and placed in chart. Signed form also left with the patient. CM will continue to follow and will assist as needed with dc plans/needs. DCPIA - Discharge Planning Initial Assessment Updated by RASHAD: Shane Lugo on 05/08/20 10:46 am * Is the patient Alert and Oriented? Yes * How many steps to enter\exit or inside your home? RAMP * PCP GRIFFITH * Pharmacy [facility] [address] * Preadmission Environment Home with Family * ADLs Independent * Equipment Oxygen Walker Wheelchair * Other Equipment N/A * Community resources currently utilized Other * Please name any agencies selected above. [facility] * Additional services required to return to the preadmission environment? No * Can the patient safely return to the preadmission environment? Yes * Has this patient been hospitalized within the prior 30 days at any hospital? No Coverage Notice Reviewer: RASHAD - Shane Lugo Notice Issued Date-Time: 05/08/2020 9:20 Notice Type: IM Discharge Notice Notice Delivered To: Patient Relationship to Patient: Self Hedge Fund Principal Name: Delivery Method: HAND - Hand Delivered Bushra Days: Prior Verbal Notification: Recipient Understood Notice: Yes Recipient Signature: Yes Med Rec Note Co-signed by Attending: Coverage Notice Comment: DC IMM delivered, explained, signed by the patient, and placed in chart. Last DP export: 05/08/20 8:50 a Patient Name: TOBY MELENDEZ Page [phone] at 0829 All edits/amendments must be made on the electronic document DICTATION DATE: 05/09/20828 COMMERCIAL CREDIT LEAD: TEODORO 05/09/20828 RPT#: [id number] DC DATE:05/08/20 STATUS: DIS IN [facility] [address] [place] [address] END OF REPORT
== END 2020-05-08 13:40 | disposition home or self-care (01) | DRG 291 ==
LOC: D.ER 16:35 → D.EDHOLD 18:01 → D.M2 18:31
PROVIDERS: Emergency Medicine; Internal Medicine Pulmonary Disease; ADMIT Family Medicine Adult Medicine; ATTEND Family Medicine Adult Medicine
PROC: 0W993ZZ Drainage of Right Pleural Cavity, Percutaneous Approach (ICD-10-PCS; principal; 2020-05-07)
DX: I11.0 Hypertensive heart disease with heart failure (principal); J18.9 Pneumonia, unspecified organism; J96.21 Acute and chronic respiratory failure with hypoxia; N17.9 Acute kidney failure, unspecified; I27.82 Chronic pulmonary embolism; I50.33 Acute on chronic diastolic (congestive) heart failure; I27.20 Pulmonary hypertension, unspecified; D64.9 Anemia, unspecified; K21.9 Gastro-esophageal reflux disease without esophagitis; F41.8 Other specified anxiety disorders; Z87.891 Personal history of nicotine dependence

== ENCOUNTER 2020-05-16 20:28 | Inpatient (IN) | payer MEDICARE ==
[~2020-05-16] VITALS: Ht 182.9 cm; Wt 78.9 kg
[~2020-05-16 20:28] MED LIST changes: +ALDACTONE50 MG PO; +ATROVENT 0.02%2.5 ML UPD; +KLOR-CON M2020 MEQ PO; +PROAIR HFA8.5 G1 INH; +TORSEMIDE20 MG PO
--- NOTE | 2020-05-16 22:30 | NUR ---
REPORT RECEIVED, WILL CONT POC. PT A&O, UP IN BED WATCHING TV. NO S/S OF DISTRESS OBSERVED. RR EVEN & UNLABORED ON 5L NC. BED LOCKED AND LOWERED, CL IN REACH. ASSESSMENT COMPLETED AT THIS TIME. WILL CONT TO MONITOR.
[2020-05-16] MEDS ORDERED: TORSEMIDE20 MG PO (22:48)
[2020-05-16] MEDS ORDERED: ADCIRCA20 MG PO (22:54)
[2020-05-16] MEDS ORDERED: LETAIRIS10 MG PO (22:55)
[2020-05-17 01:12] VITALS: BP 123/59; BMI 23.6
[2020-05-17 05:38] VITALS: BP 115/59
[2020-05-17 06:44] LABS: BASOPHILS 0.2 % (0-2); HEMATOCRIT 33.3 % (42.0-54.0); HEMOGLOBIN 10.8 g/dL (13.5-17.5); IMMATURE GRANULOCYTES 0.2 % (0-5); LYMPHOCYTE ABS# 0.86 10x3/uL (1.32-3.57); MCH 27.4 pg (26.0-34.0); MCHC 32.4 g/dL (31.0-37.0); MCV 84.5 fL (80.0-100.0); MEAN PLATELET VOLUME 9.5 fL (7.4-10.4); MONOCYTES 11.5 % (2-11); NEUTROPHIL ABS# 3.44 10x3/uL (1.78-5.38); NEUTROPHILS 68.1 % (40-80); PLATELET COUNT 152 10x3/uL (130-400); RBC 3.94 10x6/uL (4.20-6.10); RDW 17.8 % (11.5-14.5); WBC 5.1 10x3/uL (4.8-10.8)
[2020-05-17 07:04] LABS: ALBUMIN 3.3 g/dL (3.4-5.0); ALKALINE PHOSPHATASE 130 U/L (30-120); ALT (SGPT) 27 U/L (10-68); BILIRUBIN - TOTAL 0.81 mg/dL (0.2-1.3); CALC OSMOLALITY 274 mosm/kg (275-300); CALCIUM 8.2 mg/dL (8.5-10.1); CARBON DIOXIDE 24.5 mmol/L (21.0-32.0); CHLORIDE - SERUM 102 mmol/L (98-107); CKMB 0.4 U/L (0.0-3.6); CREATINE KINASE 34 UL (21-232); CREATININE - SERUM 1.2 mg/dL (0.6-1.3); GLUCOSE 98 mg/dL (74-106); MAGNESIUM - SERUM 2.2 mg/dL (1.8-2.4); PHOSPHOROUS 3.4 mg/dL (2.5-4.9); POTASSIUM - SERUM 3.9 mmol/L (3.5-5.1); PRO BNP 3443 pg/mL (0-125); PROTEIN - SERUM 6.8 g/dL (6.4-8.2); SODIUM 136 mmol/L (136-145); UREA NITROGEN 22 mg/dL (7-18); eGFR NON AFRICAN AMERICAN 72 mL/min (90-120)
[2020-05-17 07:14] VITALS: BP 108/54
[2020-05-17 07:29] LABS: APTT 39.1 SECONDS (22.8-39.4); INR 1.34 (0.85-1.17); PROTIME 15.4 SECONDS (11.6-15.0)
[2020-05-17 07:40] LABS: SARS-CoV-2 ANTIGEN NEGATIVE- SARS-COV-2 (NEGATIVE)
[2020-05-17 07:45] LABS: D-DIMER-QUANTITATIVE 2.36 ug/mLFEU (0.20-0.54)
--- NOTE | 2020-05-17 07:47 | NUR ---
CALLED [facility] TO INFORM CRITICAL D DIMER 2.36 AND IR REFUSING TO PERFORM THORACENTESIS UNTIL BOTH COVID SWABS RESULT NEGATIVE.
[2020-05-17 10:57] VITALS: BP 107/68
[2020-05-17 12:43] VITALS: Ht 182.9 cm; Wt 78.9 kg
[2020-05-17 15:00] VITALS: BP 109/59
[2020-05-17 17:46] LABS: PROTEIN - BODY FLUID 3.6 G/DL
--- NOTE | 2020-05-17 18:42 | NUR ---
PAGE INTO [facility] APN FOR DISCHARGE ORDERS. SHE STATES THAT IF DR MOLINA STATES HE CAN GO HOME THEN THEY WILL DO DISCHARGE ORDERS. PAGE INTO DR MOLINA.
--- NOTE | 2020-05-17 18:46 | NUR ---
DR MOLINA TO CALL BACK AND STATES NO FOR THE DISCHARGE. PAGE INTO WES[facility] TO LET HER KNOW.
[2020-05-17 20:00] VITALS: BP 109/56
--- NOTE | 2020-05-17 21:29 | NUR ---
PT SITTING IN BED. AAOX4. NO DISTRESS NOTED, DENIES SOB. BNC IN PLACE, INCENTIVE SPIROMETER AT BEDSIDE, PT DEMONSTRATED USE APPROPRIATELY. PT IS ANXIOUS ABOUT BEING HERE. IV FLUSHED, INTACT, CLEAN AND DRY. PT FAMILY BROUGHT PT FOOD AND ITEMS TO ER AND WAS PICKED UP AND GIVEN TO PT BY MANAGER WATER. NO ADDITIONAL NEEDS AT THIS TIME.
[2020-05-18 04:00] VITALS: BP 104/45
[2020-05-18 05:57] LABS: BASOPHILS 0.2 % (0-2); EOSINOPHILS 2.7 % (0-7); HEMATOCRIT 32.2 % (42.0-54.0); HEMOGLOBIN 10.4 g/dL (13.5-17.5); IMMATURE GRANULOCYTES 0.2 % (0-5); MCH 27.5 pg (26.0-34.0); MCHC 32.3 g/dL (31.0-37.0); MCV 85.2 fL (80.0-100.0); MEAN PLATELET VOLUME 10.8 fL (7.4-10.4); MONOCYTES 14.9 % (2-11); NEUTROPHIL ABS# 2.88 10x3/uL (1.78-5.38); PLATELET COUNT 174 10x3/uL (130-400); RBC 3.78 10x6/uL (4.20-6.10); RDW 17.9 % (11.5-14.5); WBC 4.4 10x3/uL (4.8-10.8)
[2020-05-18 06:19] LABS: ALBUMIN 3.1 g/dL (3.4-5.0); ALKALINE PHOSPHATASE 117 U/L (30-120); ALT (SGPT) 22 U/L (10-68); BILIRUBIN - TOTAL 0.73 mg/dL (0.2-1.3); CALC OSMOLALITY 277 mosm/kg (275-300); CALCIUM 7.9 mg/dL (8.5-10.1); CARBON DIOXIDE 23.6 mmol/L (21.0-32.0); CHLORIDE - SERUM 105 mmol/L (98-107); CREATININE - SERUM 1.1 mg/dL (0.6-1.3); GLUCOSE 83 mg/dL (74-106); MAGNESIUM - SERUM 2.3 mg/dL (1.8-2.4); POTASSIUM - SERUM 3.7 mmol/L (3.5-5.1); PROTEIN - SERUM 6.4 g/dL (6.4-8.2); SODIUM 138 mmol/L (136-145); UREA NITROGEN 20 mg/dL (7-18); eGFR NON AFRICAN AMERICAN 80 mL/min (90-120)
[2020-05-18 07:56] VITALS: BP 115/54
[2020-05-18 11:19] VITALS: BP 96/63
[2020-05-18] MEDS ORDERED: AUGMENTIN 875-11 TAB PO (14:46)
--- NOTE | 2020-05-18 16:11 | MORECARE ---
CASE MANAGEMENT DISCHARGE SUMMARY PATIENT: TOBY MELENDEZ UNIT: [id number] ADM DATE: 05/16/20 AGE: 39 : 82 SEX: M ROOM/BED: D.2131 AUTHOR: ANTONIETTA BLOUNT PHYSICIAN: REFERRING PHYSICIAN: FAITH MENDOZA MD DATE OF SERVICE: 05/18/20 Case Management Discharge Planning Summary DCP REVIEW SUMMARY ANTICIPATED D/C DATE: EXPECTED LOS : CASE STATUS: DCP Initiated INITIAL REVIEW: 05/18/2020 INITIAL REVIEWER: Berta Puckett FINAL DISCHARGE DISPOSITION: : FINAL REVIEWER: FINAL REVIEW DATE: DCP Focus Questions & Answers DCP REV -DCP Review Added on: 05/18/20 4:01 pm QUESTION: ANSWER DCP Screen High Risk Factors: : Polypharmacy (greater than 10 meds) DCP Evaluation Patient's ability to cope with chronic illness : a. Adequate (0-3 ED visits in 6 mos., adequate financial resources, attends scheduled appts.) Mental health screen: : No mental health history Would patient like to participate in any Care Coordination programs (if applicable): : Not applicable Patient gives permission to discuss discharge plans with: (name, relationship and number) : Sim [facility] - [phone] Physical Status: : Mobility impaired Partial Dependence, assistance required for: : Ambulation / Mobility Baseline cognitive status: : *Oriented to person, place, situation, time and present Living Arrangements: : Home with Parents Pharmacy name(s): : [facility] [address] Does Patient have transportation to get home and to follow-up medical appointments when discharged from the hospital? : Yes Patient's current cognitive status: : *Oriented to person, place, situation, time and present Patient with capacity for self-care or can be cared for in same environment as prior to hospitalization? : Yes Does the patient have the ability to pay for or attain post discharge needs / services? : Yes Equipment needed for post hospitalization: : Other Equipment needed for post hospitalization: : Walker - Rolling Equipment needed for post hospitalization: : Wheelchair Other Equipment comments: : Oxygen with portable DCP Re-evaluation Would patient like to participate in any Care Coordination programs (if applicable): : Not applicable PATIENT: TOBY MELENDEZ ENCOUNTER: [id number] MEDICAL RECORD#: [id number] ADMISSION DATE: 05/16/2020 DISCHARGE DATE: ATTENDING MD: FAITH RAPP : AGE: 39 MARITAL STATUS: S DC PLAN ID: [id number] FACILITY: [facility] PRINTED ON: 05/18/20 16:11 CT All edits/amendments must be made on the electronic document DICTATION DATE: 05/18/201610 STRIPER MACHINE: TEODORO 05/18/201610 RPT#: [id number] DC DATE: STATUS: ADM IN [facility] [address] [place] [address] END OF REPORT
--- NOTE | 2020-05-18 16:23 | MORECARE ---
CASE MANAGEMENT DISCHARGE SUMMARY PATIENT: TOBY MELENDEZ UNIT: [id number] ADM DATE: 05/16/20 AGE: 39 : 82 SEX: M ROOM/BED: D.2131 AUTHOR: ANTONIETTA BLOUNT PHYSICIAN: REFERRING PHYSICIAN: FAITH BRITTON MD DATE OF SERVICE: 05/18/20 Case Management Discharge Planning Summary COMMENTS ENTERED DATE: 05/18/20 16:07 CT COMMENT TYPE: Discharge Planning REVIEWER: Berta Puckett Received discharge orders. I called patient's room number to discuss discharge planning/needs. He lives with his parents. He stats he is independent with his care. He states he drives to his appointments. He states that he did receive a f/u with his PCP last time and went to his f/u. States "I just had a new infection that caused fluid and the doctor told me to come back." States his initial f/u with [facility]'s RECEPTIONIST was for June 16 and he thought that was too far out. He has an appointment now on May the and patient is satisfied with that. States his step dad will pick him up for discharge. States [facility] has provided him with oxygen with portability on the last visit and he has a walker and wheelchair that he uses most of the time. His PCP is Dr. Britton. He declines need for home health, rehab or additional DME. Home today, no needs identified. DCP REVIEW SUMMARY ANTICIPATED D/C DATE: EXPECTED LOS : CASE STATUS: DCP Initiated INITIAL REVIEW: 05/18/2020 INITIAL REVIEWER: Berta Puckett FINAL DISCHARGE DISPOSITION: : FINAL REVIEWER: FINAL REVIEW DATE: DCP Focus Questions & Answers DCP REV -DCP Review Added on: 05/18/20 4:01 pm QUESTION: ANSWER DCP Screen High Risk Factors: : Polypharmacy (greater than 10 meds) DCP Evaluation Patient's ability to cope with chronic illness : a. Adequate (0-3 ED visits in 6 mos., adequate financial resources, attends scheduled appts.) Mental health screen: : No mental health history Would patient like to participate in any Care Coordination programs (if applicable): : Not applicable Patient gives permission to discuss discharge plans with: (name, relationship and number) : Sim victoria dad - [phone] Physical Status: : Mobility impaired Partial Dependence, assistance required for: : Ambulation / Mobility Baseline cognitive status: : *Oriented to person, place, situation, time and present Living Arrangements: : Home with Parents Pharmacy name(s): : [facility] on [address] Does Patient have transportation to get home and to follow-up medical appointments when discharged from the hospital? : Yes Patient's current cognitive status: : *Oriented to person, place, situation, time and present Patient with capacity for self-care or can be cared for in same environment as prior to hospitalization? : Yes Does the patient have the ability to pay for or attain post discharge needs / services? : Yes Equipment needed for post hospitalization: : Other Equipment needed for post hospitalization: : Walker - Rolling Equipment needed for post hospitalization: : Wheelchair Other Equipment comments: : Oxygen with portable DCP Re-evaluation Would patient like to participate in any Care Coordination programs (if applicable): : Not applicable PATIENT: TOBY MELENDEZ ENCOUNTER: [id number] MEDICAL RECORD#: [id number] ADMISSION DATE: 05/16/2020 DISCHARGE DATE: ATTENDING MD: FAITH RAPP : AGE: 39 MARITAL STATUS: S DC PLAN ID: [id number] FACILITY: [facility] PRINTED ON: 05/18/20 16:22 CT All edits/amendments must be made on the electronic document DICTATION DATE: 05/18/201621 SUBWAY REPAIR SUPERVISOR: TEODORO 05/18/201621 RPT#: [id number] DC DATE: STATUS: ADM IN [facility] [address] [place] [address] END OF REPORT
--- NOTE | 2020-05-18 16:53 | NUR ---
DISCHARGED WITH ALL PERSONAL BELONGINGS AND OXYGEN VIA WHEELCHAIR. DISCHARGE INSTRUCTIONS PROVIDED TO PATIENT. PATIENT VERBALIZED UNDERSTANDING.
--- NOTE | 2020-05-18 17:22 | MORECARE ---
CASE MANAGEMENT DISCHARGE SUMMARY PATIENT: TOBY MELENDEZ UNIT: [id number] ADM DATE: 05/16/20 AGE: 39 : 84 SEX: M ROOM/BED: D.2131 AUTHOR: ANTONIETTA BLOUNT PHYSICIAN: REFERRING PHYSICIAN: FAITH BRITTON MD DATE OF SERVICE: 05/18/20 Case Management Discharge Planning Summary COMMENTS ENTERED DATE: 05/18/20 16:07 CT COMMENT TYPE: Discharge Planning REVIEWER: Berta Puckett Received discharge orders. I called patient's room number to discuss discharge planning/needs. He lives with his parents. He stats he is independent with his care. He states he drives to his appointments. He states that he did receive a f/u with his PCP last time and went to his f/u. States "I just had a new infection that caused fluid and the doctor told me to come back." States his initial f/u with [facility]'s STONE RUBBER was for June 16 and he thought that was too far out. He has an appointment now on May the and patient is satisfied with that. States his step dad will pick him up for discharge. States [facility] has provided him with oxygen with portability on the last visit and he has a walker and wheelchair that he uses most of the time. His PCP is Dr. Britton. He declines need for home health, rehab or additional DME. Home today, no needs identified. DCP REVIEW SUMMARY ANTICIPATED D/C DATE: EXPECTED LOS : CASE STATUS: DCP Initiated INITIAL REVIEW: 05/18/2020 INITIAL REVIEWER: Berta Puckett FINAL DISCHARGE DISPOSITION: : FINAL REVIEWER: FINAL REVIEW DATE: DCP Focus Questions & Answers DCP REV -DCP Review Added on: 05/18/20 4:01 pm QUESTION: ANSWER DCP Screen High Risk Factors: : Polypharmacy (greater than 10 meds) DCP Evaluation Patient's ability to cope with chronic illness : a. Adequate (0-3 ED visits in 6 mos., adequate financial resources, attends scheduled appts.) Mental health screen: : No mental health history Would patient like to participate in any Care Coordination programs (if applicable): : Not applicable Patient gives permission to discuss discharge plans with: (name, relationship and number) : Sim victoria dad - [phone] Physical Status: : Mobility impaired Partial Dependence, assistance required for: : Ambulation / Mobility Baseline cognitive status: : *Oriented to person, place, situation, time and present Living Arrangements: : Home with Parents Pharmacy name(s): : [facility] [address] Does Patient have transportation to get home and to follow-up medical appointments when discharged from the hospital? : Yes Patient's current cognitive status: : *Oriented to person, place, situation, time and present Patient with capacity for self-care or can be cared for in same environment as prior to hospitalization? : Yes Does the patient have the ability to pay for or attain post discharge needs / services? : Yes Equipment needed for post hospitalization: : Other Equipment needed for post hospitalization: : Walker - Rolling Equipment needed for post hospitalization: : Wheelchair Other Equipment comments: : Oxygen with portable DCP Re-evaluation Would patient like to participate in any Care Coordination programs (if applicable): : Not applicable PATIENT: TOBY MELENDEZ ENCOUNTER: [id number] MEDICAL RECORD#: [id number] ADMISSION DATE: 05/16/2020 DISCHARGE DATE: 05/18/2020 ATTENDING MD: FAITH RAPP : AGE: 39 MARITAL STATUS: S DC PLAN ID: [id number] FACILITY: [facility] PRINTED ON: 05/18/20 17:22 CT All edits/amendments must be made on the electronic document DICTATION DATE: 05/18/201721 CARDIAC CATH TECHNICIAN: TEODORO 05/18/201721 RPT#: [id number] DC DATE:05/18/20 STATUS: DIS IN [facility] [address] [place] [address] END OF REPORT
== END 2020-05-18 16:54 | disposition home or self-care (01) | DRG 291 ==
LOC: D.M2 20:28
PROVIDERS: Family Medicine; Internal Medicine Pulmonary Disease; ADMIT Family Medicine Adult Medicine; ATTEND Family Medicine Adult Medicine
PROC: 0W993ZZ Drainage of Right Pleural Cavity, Percutaneous Approach (ICD-10-PCS; principal; 2020-05-17)
DX: I50.33 Acute on chronic diastolic (congestive) heart failure (principal); J96.21 Acute and chronic respiratory failure with hypoxia; J90 Pleural effusion, not elsewhere classified; Z20.822 Contact with and (suspected) exposure to COVID-19; I27.20 Pulmonary hypertension, unspecified; K21.9 Gastro-esophageal reflux disease without esophagitis; F41.8 Other specified anxiety disorders

== ENCOUNTER → 2020-05-25 16:30 | Outpatient (CLI) | payer MEDICARE ==
[2020-05-17 12:43] VITALS: BMI 23.6
== END | disposition home or self-care (01) ==
LOC: D.RAD 16:30
PROVIDERS: ATTEND Internal Medicine Pulmonary Disease
DX: I27.20 Pulmonary hypertension, unspecified (principal)

== ENCOUNTER 2020-06-02 20:47 | Observation (INO) | payer MEDICARE ==
[~2020-06-02] VITALS: Ht 182.9 cm; Wt 85.0 kg
[2020-06-02] MEDS ORDERED: ORENITRAM PO (20:59)
[2020-06-02 21:53] LABS: BASOPHILS 0.2 % (0-2); EOSINOPHILS 2.3 % (0-7); HEMATOCRIT 37.8 % (42.0-54.0); HEMOGLOBIN 12.1 g/dL (13.5-17.5); LYMPHOCYTE ABS# 0.81 10x3/uL (1.32-3.57); MCV 87.5 fL (80.0-100.0); MEAN PLATELET VOLUME 10.4 fL (7.4-10.4); MONOCYTES 11.8 % (2-11); NEUTROPHIL ABS# 3.27 10x3/uL (1.78-5.38); NEUTROPHILS 68.7 % (40-80); PLATELET COUNT 201 10x3/uL (130-400); RBC 4.32 10x6/uL (4.20-6.10); WBC 4.8 10x3/uL (4.8-10.8)
[2020-06-02 22:00] LABS: INR 2.55 (0.85-1.17); PROTIME 25.5 SECONDS (11.6-15.0)
[2020-06-02 22:01] LABS: APTT 54.7 SECONDS (22.8-39.4)
[2020-06-02 22:06] LABS: CALC OSMOLALITY 277 mosm/kg (275-300); CALCIUM 8.3 mg/dL (8.5-10.1); CARBON DIOXIDE 29.1 mmol/L (21.0-32.0); CHLORIDE - SERUM 100 mmol/L (98-107); CREATININE - SERUM 1.2 mg/dL (0.6-1.3); GLUCOSE 81 mg/dL (74-106); POTASSIUM - SERUM 3.3 mmol/L (3.5-5.1); SODIUM 138 mmol/L (136-145); UREA NITROGEN 21 mg/dL (7-18); eGFR NON AFRICAN AMERICAN 72 mL/min (90-120)
[2020-06-02 22:23] LABS: ALBUMIN 3.9 g/dL (3.4-5.0); ALKALINE PHOSPHATASE 153 U/L (30-120); ALT (SGPT) 29 U/L (10-68); BILIRUBIN - TOTAL 0.94 mg/dL (0.2-1.3); CREATINE KINASE 44 UL (21-232); PRO BNP 2166 pg/mL (0-125); PROTEIN - SERUM 7.9 g/dL (6.4-8.2)
[2020-06-02 22:31] LABS: TROPONIN-I < 0.017 ng/mL (0.000-0.060)
[2020-06-02 23:30] VITALS: BP 130/67
[2020-06-03 03:27] VITALS: BP 113/70
[2020-06-03 04:51] VITALS: BP 102/60
[2020-06-03 05:45] VITALS: BP 113/62
[2020-06-03 07:22] LABS: BASOPHILS 0.2 % (0-2); EOSINOPHILS 2.6 % (0-7); HEMOGLOBIN 10.1 g/dL (13.5-17.5); LYMPHOCYTE ABS# 0.84 10x3/uL (1.32-3.57); LYMPHOCYTES 15.5 % (15-50); MCH 27.3 pg (26.0-34.0); MCHC 31.6 g/dL (31.0-37.0); MCV 86.5 fL (80.0-100.0); MEAN PLATELET VOLUME 10.5 fL (7.4-10.4); MONOCYTES 12.2 % (2-11); NEUTROPHIL ABS# 3.78 10x3/uL (1.78-5.38); NEUTROPHILS 69.5 % (40-80); PLATELET COUNT 177 10x3/uL (130-400); RDW 18.2 % (11.5-14.5); WBC 5.4 10x3/uL (4.8-10.8)
[2020-06-03 07:43] LABS: ALBUMIN 3.3 g/dL (3.4-5.0); ALKALINE PHOSPHATASE 124 U/L (30-120); BILIRUBIN - TOTAL 0.75 mg/dL (0.2-1.3); CALC OSMOLALITY 273 mosm/kg (275-300); CALCIUM 8.1 mg/dL (8.5-10.1); CARBON DIOXIDE 25.5 mmol/L (21.0-32.0); CHLORIDE - SERUM 102 mmol/L (98-107); CREATININE - SERUM 1.1 mg/dL (0.6-1.3); GLUCOSE 90 mg/dL (74-106); MAGNESIUM - SERUM 2.5 mg/dL (1.8-2.4); POTASSIUM - SERUM 3.5 mmol/L (3.5-5.1); PROTEIN - SERUM 6.6 g/dL (6.4-8.2); SODIUM 136 mmol/L (136-145); UREA NITROGEN 19 mg/dL (7-18); eGFR NON AFRICAN AMERICAN 80 mL/min (90-120)
[2020-06-03 07:48] LABS: ALT (SGPT) 21 U/L (10-68)
[2020-06-03 09:06] VITALS: BP 112/58
--- NOTE | 2020-06-03 12:22 | NUR ---
PATIENT SITTING HIGH FOWLERS AAOX4, RESP EVEN AND NON LABORED, NO S/S OF DISTRESS, MEDICATIONS ADMINSITERED WITH NO COMPLICTAIONS, PATIENT IS NPO AND WAITING 0N DR. MOLINA TO AGREE OR NOT AGREE WITH THORACENTESIS SINCE HIS INR IS ELEVATED, NO FURTHER NEEDS AT THIS TIME, CLIR, BLP
[2020-06-03 13:01] VITALS: Ht 182.9 cm; Wt 85.0 kg
[2020-06-03 16:04] LABS: PROTEIN - BODY FLUID 3.6 G/DL
== END 2020-06-03 16:14 | disposition home or self-care (01) ==
LOC: D.ER 20:47 → OBSVTIME 22:57 → D.M2 22:57 → D.EDHOLD 22:57 → D.M2 06-03 00:30
PROVIDERS: Family Medicine; Internal Medicine Pulmonary Disease; ADMIT Emergency Medicine; ATTEND Emergency Medicine
DX: J90 Pleural effusion, not elsewhere classified (principal); I50.33 Acute on chronic diastolic (congestive) heart failure; J96.21 Acute and chronic respiratory failure with hypoxia; D64.9 Anemia, unspecified; E87.6 Hypokalemia; K21.9 Gastro-esophageal reflux disease without esophagitis; F41.8 Other specified anxiety disorders; I27.20 Pulmonary hypertension, unspecified

== ENCOUNTER 2020-06-28 21:50 | Outpatient (CLI) | payer MEDICARE ==
[~2020-06-28 21:50] MED LIST changes: +ORENITRAM PO
[2020-06-29 02:35] VITALS: BMI 22.4
[2020-06-29] MEDS ORDERED: KLONOPIN1 MG PO (06:20)
== END 2020-06-29 01:52 | disposition other institution (70) ==
LOC: D.OPS 21:50
PROVIDERS: ATTEND Emergency Medicine
DX: J90 Pleural effusion, not elsewhere classified (principal)

== ENCOUNTER 2020-06-28 21:50 | Inpatient (IN) | payer MEDICARE ==
[~2020-06-28] VITALS: Ht 182.9 cm; Wt 75.0 kg
--- NOTE | ~2020-06-28 | EC ---
PATIENT:TOBY MELENDEZ DATE OF SERVICE: 06/29/20 SEX: M MEDICAL RECORD: [id number] DATE OF : 84 LOCATION:[facility] AGE OF PATIENT: 39 ADMISSION DATE: 06/29/20 REFERRING PHYSICIAN: INTERPRETING PHYSICIAN: ANNALISE SAMUEL MD ECHOCARDIOGRAM REPORT ECHO CHARGES 5 ECHO LIMITED Date: 06/29/20 CLINICAL DIAGNOSIS: LVH ECHOCARDIOGRAPHIC MEASUREMENTS (adult normal given) AC root (d.<3.7cm) 0 cm LV Septum d (<1.2 cm> 0 cm Valve Excursion 0 cm LV Septum (systole) 0 cm Left Atria (s.<4.0cm> 0 cm LVPW d(<1.2cm) 0 cm RV (d.<2.3cm) 0 cm LVPW (sytole) 0 cm LV diastole(<5.6CM) 0 cm MV E-F(>70mm/sec) 0 cm LV systole 0 cm LVOT Diameter 0 cm MV exc.(>10mm) 0 cm Est.ejection fraction (50-75%) % DOPPLER: LVIT cm/sec A 0 cm/sec E 0 cm/sec LA 0 cm/sec RVSP 85 mmHg LVOT 0 cm/sec AOP1/2T m/s Asc. Ao 0 cm/sec RVOT 58 cm/sec RA cm/sec PA 101 cm/sec AV Gradient Peak mmHg AV Mean mmHg AV Area cm MV Gradient Peak mmHg MV Mean mmHg MV Area cm COMMENTS: Cuff Matcher: Osbaldo DUEÑAS Steno Pool Supervisor: Sarah Smith TAPE# Pericardial Effusion N DATE OF SERVICE: This is a limited study includes 2D, color-flow. Grossly, LVH appears present. LV internal dimension is normal. Wall motion is normal. EF is greater than or equal to 55%. Aortic valve is tricuspid with good valve excursion. Left atrium grossly appears normal. Mild MR. Right-sided chambers appear dilated. Severe TR. RV systolic pressures were estimated greater than or equal to 85 mmHg via the continuity equation. ECHOCARDIOGRAM REPORT [id number] TOBY MELENDEZ TRANSINT:[id number] Voice Confirmation ID: [id number] DOCUMENT ID: [id number] ANNALISE SAMUEL MD CC: [id number] DICTATION DATE: 06/30/20 1524 BUFFING MACHINE OPERATOR SEMIAUTOMATIC: 06/30/20 1806 DIS IN 06/29/20 [facility] [address] [place] [address]
[2020-06-28 22:43] LABS: BASOPHILS 0.4 % (0-2); EOSINOPHILS 3.9 % (0-7); HEMATOCRIT 36.4 % (42.0-54.0); HEMOGLOBIN 11.9 g/dL (13.5-17.5); IMMATURE GRANULOCYTES 0.2 % (0-5); LYMPHOCYTE ABS# 0.87 10x3/uL (1.32-3.57); LYMPHOCYTES 15.5 % (15-50); MCHC 32.7 g/dL (31.0-37.0); MEAN PLATELET VOLUME 10.6 fL (7.4-10.4); MONOCYTES 10.7 % (2-11); NEUTROPHIL ABS# 3.89 10x3/uL (1.78-5.38); NEUTROPHILS 69.3 % (40-80); PLATELET COUNT 172 10x3/uL (130-400); RBC 4.11 10x6/uL (4.20-6.10); RDW 17.4 % (11.5-14.5); WBC 5.6 10x3/uL (4.8-10.8)
[2020-06-28 22:45] LABS: MCH 29.1 pg (26.0-34.0); MCV 88.3 fL (80.0-100.0)
[2020-06-28 22:50] LABS: INR 1.36 (0.85-1.17); PROTIME 15.5 SECONDS (11.6-15.0)
[2020-06-28 22:51] LABS: APTT 36.6 SECONDS (22.8-39.4)
[2020-06-28 22:52] LABS: CALC OSMOLALITY 280 mosm/kg (275-300); CALCIUM 8.8 mg/dL (8.5-10.1); CARBON DIOXIDE 28.3 mmol/L (21.0-32.0); CHLORIDE - SERUM 102 mmol/L (98-107); CREATININE - SERUM 1.2 mg/dL (0.6-1.3); GLUCOSE 98 mg/dL (74-106); SODIUM 139 mmol/L (136-145); UREA NITROGEN 20 mg/dL (7-18); eGFR NON AFRICAN AMERICAN 72 mL/min (90-120)
[2020-06-28 23:06] LABS: ALBUMIN 4.1 g/dL (3.4-5.0); ALKALINE PHOSPHATASE 133 U/L (30-120); ALT (SGPT) 34 U/L (10-68); BILIRUBIN - TOTAL 0.96 mg/dL (0.2-1.3); CKMB 0.6 U/L (0.0-3.6); CREATINE KINASE 42 UL (21-232); PRO BNP 2016 pg/mL (0-125); PROTEIN - SERUM 8.3 g/dL (6.4-8.2)
[2020-06-28 23:11] LABS: TROPONIN-I < 0.017 ng/mL (0.000-0.060)
[2020-06-29] VITALS (9 sets, daily range): BP systolic 92–114; BP diastolic 47–77; Ht 182.9 cm; Wt 75.0 kg
--- NOTE | 2020-06-29 06:03 | NUR ---
I have reviewed this patient and I concur with the Shift Assessment completed by the Licensed Practical Nurse today this shift.
[2020-06-29] MEDS ORDERED: KLONOPIN1 MG PO (06:20)
[2020-06-29 09:52] LABS: BASOPHILS 0.2 % (0-2); EOSINOPHILS 3.8 % (0-7); IMMATURE GRANULOCYTES 0.2 % (0-5); LYMPHOCYTE ABS# 0.71 10x3/uL (1.32-3.57); LYMPHOCYTES 12.9 % (15-50); MCH 28.7 pg (26.0-34.0); MCHC 32.4 g/dL (31.0-37.0); MCV 88.8 fL (80.0-100.0); MEAN PLATELET VOLUME 10.6 fL (7.4-10.4); NEUTROPHIL ABS# 3.91 10x3/uL (1.78-5.38); NEUTROPHILS 70.9 % (40-80); PLATELET COUNT 167 10x3/uL (130-400); RBC 3.83 10x6/uL (4.20-6.10); RDW 17.3 % (11.5-14.5); WBC 5.5 10x3/uL (4.8-10.8)
[2020-06-29 09:57] LABS: ANION GAP 11.8 mmol/L (8-16); CALCIUM 8.4 mg/dL (8.5-10.1); CARBON DIOXIDE 27.9 mmol/L (21.0-32.0); CREATININE - SERUM 1.2 mg/dL (0.6-1.3); POTASSIUM - SERUM 3.7 mmol/L (3.5-5.1)
[2020-06-29 09:58] LABS: APTT 36.8 SECONDS (22.8-39.4); INR 1.32 (0.85-1.17); PROTIME 15.1 SECONDS (11.6-15.0)
== END 2020-06-29 18:34 | disposition home or self-care (01) | DRG 291 ==
LOC: D.ER 21:50 → D.MS 06-29 01:52
PROVIDERS: Family Medicine; Radiology Diagnostic Radiology; ADMIT Emergency Medicine; ATTEND Emergency Medicine
PROC: 0W993ZZ Drainage of Right Pleural Cavity, Percutaneous Approach (ICD-10-PCS; principal; 2020-06-29 08:30)
DX: I11.0 Hypertensive heart disease with heart failure (principal); J96.21 Acute and chronic respiratory failure with hypoxia; J90 Pleural effusion, not elsewhere classified; I50.43 Acute on chronic combined systolic (congestive) and diastolic (congestive) heart failure; D64.9 Anemia, unspecified; K21.9 Gastro-esophageal reflux disease without esophagitis; F41.8 Other specified anxiety disorders; I27.20 Pulmonary hypertension, unspecified